=== PATIENT | female | born 1980 | race Caucasian/White ===

== ENCOUNTER → 2016-08-01 | Outpatient (CLI) | payer OTHER ==
[~2016-08-01] MED LIST: /ADVA50050; ADV250INH INH; ALBU17IN2; ASPI325T; CETI10TA3 PO; OMEP40CA2 PO; PERC5TAB8; VENTAER INH; astelin; flonase
--- NOTE | 2016-08-01 16:25 | REP ---
Maxillofacial CT study without contrast: History: Chronic sinusitis. Comparison radiographs of the sinuses are from August 17, 2010. Comparison maxillofacial CT study from December 18, 2010. Technique: Helical scanning is acquired and 3 mm axial images are reformatted. Coronal multiplanar re-formation images are generated and reviewed. CT findings: The maxillary sinuses are clear. Ethmoid, sphenoid and frontal sinuses are clear today. No mucosal changes are seen. Mastoid aeration is normal and symmetric. There is mild leftward deviation of the nasal septum with a septal beak again noted. There is a small aerated radha bullosa on the left. The ostiomeatal complexes are clear bilaterally. No intraorbital abnormality is seen. The visualized intracranial structures are unremarkable. Impression: Mild right nasal septal deviation with a beak. Paranasal sinuses are clear. Signed by Pillo Wasserman MD 08/01/2016 06:01 P
== END ==
LOC: M RAD 14:25
PROVIDERS: ATTEND Internal Medicine Pulmonary Disease
DX: J34.2 Deviated nasal septum (principal); J31.0 Chronic rhinitis; J32.0 Chronic maxillary sinusitis

== ENCOUNTER → 2016-12-29 | Outpatient (REF) | payer OTHER ==
[2016-12-29 16:21] LABS: BASO # 0.1 K/mm3 (0.0-0.2); BASO % 0.6 % (0.0-1.0); EOS # 0.5 K/mm3 (0.0-0.50); EOS % 4.3 % (0.0-3.0); LARGE UNSTAINED CELL # 0.2 K/mm3 (0.0-0.4); LARGE UNSTAINED CELL % 1.8 % (0.0-4.0); LYMPH # 3.1 K/mm3 (1.5-4.5); LYMPH % 23.9 % (24.0-44.0); MEAN CORPUSCULAR HEMOGLOBIN 28.8 pg (27.0-33.0); MEAN CORPUSCULAR HGB CONC 32.3 g/dl (32.0-36.5); MEAN CORPUSCULAR VOLUME 89.1 fl (80.0-96.0); MONO # 0.6 K/mm3 (0.0-0.8); MONO % 4.5 % (0.0-5.0); PLATELET COUNT, AUTOMATED 289 k/mm3 (150-450); WHITE BLOOD COUNT 12.2 K/mm3 (4.0-10.0)
[2016-12-29 16:58] LABS: ALBUMIN 3.8 GM/DL (3.2-5.2); ALBUMIN/GLOBULIN RATIO 1.31 (1.00-1.93); BILIRUBIN,TOTAL 0.3 MG/DL (0.2-1.0); CALCIUM LEVEL 9.5 MG/DL (8.5-10.1); CREATININE FOR GFR 1.11 MG/DL (0.55-1.02); FREE T4 1.08 NG/DL (0.76-1.46); GLOMERULAR FILTRATION RATE 59.2 (>60); TOTAL PROTEIN 6.7 GM/DL (6.4-8.2)
== END ==
LOC: M SFHCSACK 10:10
PROVIDERS: ATTEND Physician Assistant
DX: E55.9 Vitamin D deficiency, unspecified (principal); R51 Headache; Z13.29 Encounter for screening for other suspected endocrine disorder; Z13.220 Encounter for screening for lipoid disorders

== ENCOUNTER → 2017-03-30 | Outpatient (REF) | payer OTHER ==
[2017-03-30 14:58] LABS: BASO # 0.1 10^3/uL (0.0-0.2); BASO % 0.5 % (0.0-1.0); EOS # 0.6 10^3/uL (0.0-0.50); EOS % 4.8 % (0.0-3.0); IMMATURE GRANULOCYTE % 0.7 % (0-0); LYMPH # 3.7 10^3/uL (1.5-4.5); LYMPH % 30.7 % (24.0-44.0); MEAN CORPUSCULAR HEMOGLOBIN 28.3 pg (27.0-33.0); MEAN CORPUSCULAR HGB CONC 32.4 g/dl (32.0-36.5); MEAN CORPUSCULAR VOLUME 87.6 fl (80.0-96.0); MONO # 0.7 10^3/uL (0.0-0.8); NEUTROPHILS % 57.3 % (36.0-66.0); PLATELET COUNT, AUTOMATED 263 10^3/uL (150-450); RED CELL DISTRIBUTION WIDTH 14.3 % (11.5-14.5); WHITE BLOOD COUNT 12.1 10^3/uL (4.0-10.0)
[2017-03-30 15:20] LABS: ALBUMIN 3.9 GM/DL (3.2-5.2); ALBUMIN/GLOBULIN RATIO 1.44 (1.00-1.93); BILIRUBIN,TOTAL 0.3 MG/DL (0.2-1.0); CREATININE FOR GFR 1.1 MG/DL (0.55-1.02); GLOMERULAR FILTRATION RATE 59.8 (>60); TOTAL PROTEIN 6.6 GM/DL (6.4-8.2)
== END ==
LOC: M SFHCSACK 09:50
PROVIDERS: ATTEND Physician Assistant
DX: R51 Headache (principal); E78.1 Pure hyperglyceridemia; E55.9 Vitamin D deficiency, unspecified

== ENCOUNTER → 2017-06-03 | Outpatient (CLI) | payer OTHER | LOC: M RAD 08:34 | DX: N18.3 Chronic kidney disease, stage 3 (moderate) (principal) | CPT/HCPCS: 76775 ==

== ENCOUNTER → 2017-07-06 | Outpatient (REF) | payer OTHER ==
[2017-07-06 14:20] LABS: BASO # 0.1 10^3/uL (0.0-0.2); BASO % 0.6 % (0.0-1.0); EOS # 0.6 10^3/uL (0.0-0.50); EOS % 4.6 % (0.0-3.0); HEMATOCRIT 36.9 % (36.0-47.0); HEMOGLOBIN 12.1 g/dl (12.0-16.0); IMMATURE GRANULOCYTE % 0.7 % (0-3.0); LYMPH # 3.8 10^3/uL (1.5-4.5); LYMPH % 29.8 % (24.0-44.0); MEAN CORPUSCULAR HEMOGLOBIN 28.9 pg (27.0-33.0); MEAN CORPUSCULAR HGB CONC 32.8 g/dl (32.0-36.5); MEAN CORPUSCULAR VOLUME 88.1 fl (80.0-96.0); MONO # 0.8 10^3/uL (0.0-0.8); MONO % 5.9 % (0.0-5.0); NEUTROPHILS # 7.4 10^3/uL (1.8-7.7); NEUTROPHILS % 58.4 % (36.0-66.0); PLATELET COUNT, AUTOMATED 222 10^3/uL (150-450); RED BLOOD COUNT 4.19 10^6/uL (4.00-5.40); RED CELL DISTRIBUTION WIDTH 14.3 % (11.5-14.5); WHITE BLOOD COUNT 12.6 10^3/uL (4.0-10.0)
[2017-07-06 14:33] LABS: ALBUMIN 3.6 GM/DL (3.2-5.2); ALBUMIN/GLOBULIN RATIO 1.24 (1.00-1.93); ALKALINE PHOSPHATASE 97 U/L (45-117); ALT/SGPT 24 U/L (12-78); ANION GAP 8 MEQ/L (8-16); AST/SGOT 12 U/L (7-37); BILIRUBIN,TOTAL 0.4 MG/DL (0.2-1.0); BLOOD UREA NITROGEN 14 MG/DL (7-18); CALCIUM LEVEL 8.9 MG/DL (8.5-10.1); CARBON DIOXIDE LEVEL 25 MEQ/L (21-32); CHLORIDE LEVEL 109 MEQ/L (98-107); CREATININE FOR GFR 1.13 MG/DL (0.55-1.30); GLUCOSE, FASTING 85 MG/DL (70-100); POTASSIUM SERUM 3.9 MEQ/L (3.5-5.1); SODIUM LEVEL 142 MEQ/L (136-145); TOTAL PROTEIN 6.5 GM/DL (6.4-8.2)
== END ==
LOC: M SFHCSACK 10:27
DX: N39.0 Urinary tract infection, site not specified (principal)

== ENCOUNTER 2017-10-05 12:58 | Day surgery (SDC) | payer OTHER ==
[2017-10-05] MEDS: NS 1,000 ML IV (13:00)
== END 2017-10-05 15:50 | disposition home or self-care (01) ==
LOC: M OPP 12:58
DX: K29.70 Gastritis, unspecified, without bleeding (principal); R12 Heartburn; N80.9 Endometriosis, unspecified; J45.909 Unspecified asthma, uncomplicated; R51 Headache; N18.9 Chronic kidney disease, unspecified; Z79.899 Other long term (current) drug therapy
CPT/HCPCS: 43239

== ENCOUNTER 2017-11-02 19:46 | Emergency (ER) | payer OTHER ==
[2017-11-02] MEDS: diphenhydrAMINE INJ 50MG/ML VIAL (J1200) IV (21:33)
[2017-11-02] MEDS: METOCLOPRAMIDE INJ 10MG/2ML VIAL (J2765) IV (21:45)
[2017-11-02] MEDS: NS 1,000 ML IV (21:45)
[2017-11-02] MEDS: methylPREDNISolone INJ 125 MG/2 ML VIAL (J2930) IV (21:45)
== END 2017-11-02 23:49 | disposition home or self-care (01) ==
LOC: M ED 19:46
DX: G43.809 Other migraine, not intractable, without status migrainosus (principal); J30.89 Other allergic rhinitis; Z79.899 Other long term (current) drug therapy; Z79.51 Long term (current) use of inhaled steroids
CPT/HCPCS: J1200

== ENCOUNTER 2018-01-14 19:16 | Emergency (ER) | payer OTHER ==
[2018-01-14 21:33] LABS: ABG BASE EXCESS -2.3 (-2.0-2.0); ABG HCO3 18.1 MEQ/L (22.0-26.0); ABG O2 SATURATION 99.4 % (95.0-99.0); ABG PARTIAL PRESSURE CO2 20.9 mmHg (35.0-45.0); ABG PARTIAL PRESSURE O2 157.1 mmHg (75.0-100.0); ABG STANDARD HCO3 22.6 MEQ/L (22.0-26.0); ABG TOTAL CO2 18.7 MEQ/L (22.0-29.0); ABG pH (ARTERIAL) 7.555 UNITS (7.350-7.450)
== END 2018-01-14 22:12 | disposition home or self-care (01) ==
LOC: M ED 19:16
DX: R06.4 Hyperventilation (principal); J45.909 Unspecified asthma, uncomplicated; K21.9 Gastro-esophageal reflux disease without esophagitis; Z79.899 Other long term (current) drug therapy
CPT/HCPCS: 82803

== ENCOUNTER → 2018-01-14 | Outpatient (CLI) | payer OTHER | LOC: M WUC 18:17 | DX: R06.02 Shortness of breath (principal) | CPT/HCPCS: 71046 ==

== ENCOUNTER → 2018-01-20 | Outpatient (REF) | payer OTHER ==
[2018-01-20 14:10] LABS: BASO # 0.1 10^3/uL (0.0-0.2); BASO % 0.6 % (0.0-1.0); EOS # 0.4 10^3/uL (0.0-0.50); EOS % 2.7 % (0.0-3.0); HEMATOCRIT 37.7 % (36.0-47.0); IMMATURE GRANULOCYTE % 0.5 % (0-3.0); LYMPH # 4.1 10^3/uL (1.5-4.5); LYMPH % 27.6 % (24.0-44.0); MEAN CORPUSCULAR HEMOGLOBIN 28.6 pg (27.0-33.0); MEAN CORPUSCULAR HGB CONC 31.8 g/dl (32.0-36.5); MEAN CORPUSCULAR VOLUME 89.8 fl (80.0-96.0); MONO # 0.9 10^3/uL (0.0-0.8); MONO % 6.4 % (0.0-5.0); NEUTROPHILS # 9.1 10^3/uL (1.8-7.7); NEUTROPHILS % 62.2 % (36.0-66.0); PLATELET COUNT, AUTOMATED 259 10^3/uL (150-450); RED CELL DISTRIBUTION WIDTH 14.6 % (11.5-14.5); WHITE BLOOD COUNT 14.7 10^3/uL (4.0-10.0)
[2018-01-20 14:48] LABS: ALBUMIN 3.5 GM/DL (3.2-5.2); ALBUMIN/GLOBULIN RATIO 1.21 (1.00-1.93); ALKALINE PHOSPHATASE 84 U/L (45-117); ALT/SGPT 29 U/L (12-78); ANION GAP 8 MEQ/L (8-16); AST/SGOT 13 U/L (7-37); BILIRUBIN,TOTAL 0.2 MG/DL (0.2-1.0); BLOOD UREA NITROGEN 11 MG/DL (7-18); CALCIUM LEVEL 8.3 MG/DL (8.5-10.1); CARBON DIOXIDE LEVEL 23 MEQ/L (21-32); CHLORIDE LEVEL 112 MEQ/L (98-107); CHOLESTEROL LEVEL 136 MG/DL (<200); CHOLESTEROL RISK RATIO 4.689 (<5); CREATININE FOR GFR 1.24 MG/DL (0.55-1.30); FREE T4 1.13 NG/DL (0.76-1.46); GLOMERULAR FILTRATION RATE 51.8 (>60); GLUCOSE, FASTING 86 MG/DL (70-100); HDL CHOLESTEROL 29 MG/DL (>40); LDL CHOLESTEROL 49 MG/DL (<100); NON-HDL-C 107 MG/DL; SODIUM LEVEL 143 MEQ/L (136-145); THYROID STIMULATING HORMONE 0.748 uIU/ML (0.358-3.740); TOTAL PROTEIN 6.4 GM/DL (6.4-8.2); TRIGLYCERIDES LEVEL 292 MG/DL (<150)
== END ==
LOC: M SFHCSACK 09:13
DX: J45.909 Unspecified asthma, uncomplicated (principal); E78.1 Pure hyperglyceridemia; Z13.29 Encounter for screening for other suspected endocrine disorder; E55.9 Vitamin D deficiency, unspecified

== ENCOUNTER → 2018-07-30 | Outpatient (REF) | payer OTHER ==
[~2018-07-30] MED LIST changes: -/ADVA50050; +ADVA1AER2; +ALBU83IN INH; +AZEL0.1S; +BENA25CA4 PO; +BREO1INH3 INH; +FLON1SPR; +LORA-243 PO; +MONT10TA2 PO; +OMEP20CA3; +POTA1TAB23; +RIZA5TAB3
[2018-07-30 14:36] LABS: BASO # 0.1 10^3/uL (0.0-0.2); BASO % 0.4 % (0.0-1.0); EOS # 0.5 10^3/uL (0.0-0.50); EOS % 3.2 % (0.0-3.0); HEMATOCRIT 37.2 % (36.0-47.0); HEMOGLOBIN 11.8 g/dl (12.0-15.5); LYMPH # 3.3 10^3/uL (1.5-4.5); LYMPH % 22.4 % (24.0-44.0); MEAN CORPUSCULAR HEMOGLOBIN 28.4 pg (27.0-33.0); MEAN CORPUSCULAR HGB CONC 31.7 g/dl (32.0-36.5); MEAN CORPUSCULAR VOLUME 89.4 fl (80.0-96.0); MONO # 0.9 10^3/uL (0.0-0.8); MONO % 6.2 % (0.0-5.0); NEUTROPHILS # 9.9 10^3/uL (1.8-7.7); NEUTROPHILS % 67.5 % (36.0-66.0); PLATELET COUNT, AUTOMATED 268 10^3/uL (150-450); RED BLOOD COUNT 4.16 10^6/uL (4.00-5.40); WHITE BLOOD COUNT 14.7 10^3/uL (4.0-10.0)
[2018-07-30 14:50] LABS: ALBUMIN 3.6 GM/DL (3.2-5.2); BILIRUBIN,TOTAL 0.3 MG/DL (0.2-1.0); CALCIUM LEVEL 9.1 MG/DL (8.5-10.1); CHOLESTEROL RISK RATIO 3.378 (<5); CREATININE FOR GFR 1.16 MG/DL (0.55-1.30); POTASSIUM SERUM 4.4 MEQ/L (3.5-5.1); TOTAL PROTEIN 6.7 GM/DL (6.4-8.2)
[2018-07-30 14:51] LABS: TOTAL 25(OH) VITAMIN D 18.3 NG/ML (30.0-100.0)
== END ==
LOC: M SFHCSACK 08:42
PROVIDERS: ATTEND Physician Assistant
DX: D72.829 Elevated white blood cell count, unspecified (principal); E78.1 Pure hyperglyceridemia; E55.9 Vitamin D deficiency, unspecified

== ENCOUNTER → 2019-02-14 | Outpatient (REF) | payer OTHER ==
[~2019-02-14] MED LIST changes: +ALBU8TAB PO; +MULTCAP PO; -OMEP20CA3; +OMEP20CA4; -RIZA5TAB3; +RIZA5TAB52; +TIOT18INH INH; +VITA500045 PO
[2019-02-14 14:58] LABS: BASO # 0.1 10^3/uL (0.0-0.2); BASO % 0.6 % (0.0-1.0); EOS # 0.6 10^3/uL (0.0-0.5); EOS % 4.8 % (0.0-3.0); HEMOGLOBIN 12.2 g/dl (12.0-15.5); LYMPH # 3.9 10^3/uL (1.5-5.0); LYMPH % 30.2 % (24.0-44.0); MEAN CORPUSCULAR HEMOGLOBIN 29.1 pg (27.0-33.0); MEAN CORPUSCULAR HGB CONC 32.1 g/dl (32.0-36.5); MEAN CORPUSCULAR VOLUME 90.7 fl (80.0-96.0); MONO # 0.7 10^3/uL (0.0-0.8); MONO % 5.2 % (0.0-5.0); NEUTROPHILS # 7.6 10^3/uL (1.5-8.5); NEUTROPHILS % 58.7 % (36.0-66.0); PLATELET COUNT, AUTOMATED 279 10^3/uL (150-450); RED BLOOD COUNT 4.19 10^6/uL (4.00-5.40)
[2019-02-14 15:11] LABS: ALBUMIN 3.7 GM/DL (3.2-5.2); BILIRUBIN,TOTAL 0.2 MG/DL (0.2-1.0); CALCIUM LEVEL 9.3 MG/DL (8.5-10.1); CHOLESTEROL RISK RATIO 3.555 (<5); CREATININE FOR GFR 1.16 MG/DL (0.55-1.30); FREE T4 1.12 NG/DL (0.76-1.46); GLOMERULAR FILTRATION RATE 55.7 (>60); POTASSIUM SERUM 3.8 MEQ/L (3.5-5.1); THYROID STIMULATING HORMONE 0.53 uIU/ML (0.358-3.740); TOTAL PROTEIN 6.7 GM/DL (6.4-8.2)
[2019-02-14 16:03] LABS: TOTAL 25(OH) VITAMIN D 39.4 NG/ML (30.0-100.0)
== END ==
LOC: M SFHCSACK 08:46
PROVIDERS: ATTEND Physician Assistant
DX: D72.829 Elevated white blood cell count, unspecified (principal); N18.3 Chronic kidney disease, stage 3 (moderate); Z13.29 Encounter for screening for other suspected endocrine disorder; E78.1 Pure hyperglyceridemia; E55.9 Vitamin D deficiency, unspecified

== ENCOUNTER → 2019-12-23 | Outpatient (REF) | payer OTHER ==
[~2019-12-23] MED LIST changes: -MONT10TA2 PO; +MONT10TA4 PO; +OMEP1CAP73; -OMEP20CA4
== END ==
LOC: M SFHCPLAZ 10:34
PROVIDERS: ATTEND Student in an Organized Health Care Education/Training Program
DX: Z12.4 Encounter for screening for malignant neoplasm of cervix (principal); R87.619 Unspecified abnormal cytological findings in specimens from cervix uteri

== ENCOUNTER → 2020-11-29 | Outpatient (CLI) | payer OTHER ==
[~2020-11-29] MED LIST changes: +MONT10TA10 PO; -MONT10TA4 PO
[2020-11-29 17:39] LABS: THYROID STIMULATING HORMONE 0.316 uIU/ML (0.358-3.740)
[2020-11-29 17:40] LABS: PROLACTIN 8.9 NG/ML
== END ==
LOC: M PLALAB 14:52
PROVIDERS: ATTEND Nurse Practitioner Women's Health
DX: N64.52 Nipple discharge (principal)

== ENCOUNTER → 2020-12-31 | Outpatient (CLI) | payer OTHER ==
--- NOTE | 2021-01-01 11:04 | REP ---
INDICATION: RT BREAST MASS,FAM HX OF BREAST CA IN MOTHER, NIPPLE DISCHAR. COMPARISON: None TECHNIQUE: Bilateral diagnostic mammography was carried out in the CC and MLO projections using both 2D and 3D modalities. There are no priors for comparison. In addition to the standard mammography diagnostic digital magnified spot compression views of each breast were obtained along with ultrasonography using anatomical intelligence and shear wave elastography. Patient presents with a right breast mass. FINDINGS: Dense heterogenous nodular fibroglandular elements are seen bilaterally to such a degree that the sensitivity of the mammogram in detecting cancers decreased. In the right breast there is a large spiculated mass near the 12 o'clock position. This is seen with concomitant calcifications which vary in size, shape, and radiographic density. Diagnostic digital magnified spot compression views and diagnostic DBT spot compression views of this region shows a calcifications which indeed vary in size, shape and radiographic density. Large mass with spiculations persist. In the left breast near the 12 o'clock position there is a spiculated mass density. Diagnostic digital magnified spot compression views and DBT images were obtained which show persistence of the spiculated density. Diagnostic right breast ultrasound over the large mass region of interest shows a 4.3 x 2.8 x 3.9 cm sized hypoechoic irregular mass which is taller than wide and exhibits acoustic shadowing. Shear wave elastography was performed on this showing very high kPa values. Diagnostic left breast ultrasound at 12 o'clock shows 2 hypoechoic areas 1 measuring 1.6 x 0.8 x 1.4 cm and the other measuring 7.8 x 6.4 x 8.8 mm. Shear wave elastography was performed on these showing low and mid range kPa values. The Volpara volumetric breast density pattern is D. IMPRESSION: BIRADS/ACR category 4 bilateral mammogram. Suspicious findings in each breast as described above and for which bilateral biopsy is recommended. I would also recommend at this time bilateral breast MRI due to the bilateral nature of the findings today, the marked dense heterogenous breast parenchyma, and the concern for multifocal multi centric bilateral breast disease. This patient's Tyrer-Cuzick lifetime breast cancer risk assessment score is %. This mammogram was interpreted with the aid of an FDA-approved computer-aided detection system. The patient states she had a clinical breast exam in . The patient letter being requested is M1. RECOMMENDATION: Repeat screening mammography recommended 1 year (for women over 40). <Electronically signed by Vladimir Santana > 01/01/21 1100
== END ==
LOC: M WHC 14:49
PROVIDERS: ATTEND Nurse Practitioner Women's Health
DX: N63.10 Unspecified lump in the right breast, unspecified quadrant (principal); N63.20 Unspecified lump in the left breast, unspecified quadrant; N64.59 Other signs and symptoms in breast
CPT/HCPCS: 76642; 77066; G0279

== ENCOUNTER → 2021-01-03 | Outpatient (CLI) | payer OTHER ==
--- NOTE | 2021-01-03 11:35 | REP ---
INDICATION: The patient has known bilateral breast abnormalities as indicated on the diagnostic mammogram and diagnostic ultrasound examination obtained 12/31/2020. TECHNIQUE: Bilateral breast ultrasound using anatomical intelligence and shear wave elastography. FINDINGS: Right breast: Multiple complex heterogenous masses are identified throughout the right breast at the 12 30, 5 o'clock, and 9 o'clock, and 10 o'clock positions all of the solid masses are irregular, exhibit acoustic shadowing, and have abnormally high kPa values with shear wave elastography. At the 12:30 position the abnormality measures 2.1 x 1.4 x 2.4 cm, at the 5 o'clock position the abnormality measures 1.9 x 1 x 2.4 cm, at the 9 o'clock position the abnormality measures 2.4 x 1.1 x 1.7 cm, and at the 10 o'clock position the abnormality measures 2.6 x 1.4 x 2.1 cm. Left breast: Multiple complex heterogenous masses are identified throughout the left breast 2 at the 10 o'clock position, 1 to 1 o'clock position, and 1 at the 3 o'clock position. All of these are irregular, exhibit acoustic shadowing, and have abnormally high kPa values on shear wave elastography. Of the 2 masses at 10 o'clock 1 measures 1.8 x 1.8 x 1.5 cm and the other measures 3.5 x 1.6 x 2 cm, at the 1 o'clock position the mass measures 1.6 x 0.7 x 1.3 cm a, and at the 3 o'clock position the mass measures 1.9 x 1.4 x 1.5 cm. IMPRESSION: There are multiple bilateral abnormal breast masses all suspicious for malignancy. ACR category 4 ultrasound. Biopsy and bilateral breast MRI is recommended to further assess the suspected multi centric multifocal bilateral breast disease. <Electronically signed by Vladimir Santana > 01/03/21 1610
== END ==
LOC: M WHC 09:31
PROVIDERS: ATTEND Surgery
DX: N63.10 Unspecified lump in the right breast, unspecified quadrant (principal); N63.20 Unspecified lump in the left breast, unspecified quadrant

== ENCOUNTER → 2021-01-08 | Outpatient (CLI) | payer OTHER ==
[~2021-01-08] MED LIST changes: +LEVOTAB10 PO
[2021-01-08 09:55] VITALS: BP 130/88
--- NOTE | 2021-01-14 21:53 | ROOPDOC ---
[facility] Report Of Operation Report of Operation DATE OF PROCEDURE: 01/08/21 DIAGNOSIS: bilateral breast and right axillary suspicious lesions PROCEDURE: ultrasound guided biopsy of the suspicious right axillary lesion with clip placement, two suspicious right breast masses with clips placement, and two suspicious left breast masses with clips placement SURGEON: Sylvia Jorgensen BLOOD LOSS: minimal COMPLICATIONS: none Lidocaine 1% LOT [id number] Expiration 06/2024 Sodium Bicarbonate 8.4% LOT [id number] Expiration 05/2021 Right 1:00 biopsy Hydromark clip LOT [id number] Expiration 10/2023 SHAPE: 4 Bx device: BARD [id number] x10 cm LOT [id number] Expiration 09/2023 Right 10:00 biopsy Hydromark clip LOT [id number] Expiration 10/2023 SHAPE: 3 Bx device: BARD Kqnmfki45A x10 cm LOT [id number] Expiration 09/2023 Right axillary biopsy Hydromark clip LOT [id number] Expiration 10/2023 SHAPE 4 Bx device: TEMNO 18G x 20 cm LOT [id number] Expiration 05/2024 Left 1:00 biopsy Hydromark clip LOT [id number] Expiration 10/2023 SHAPE: 4 Bx device: BARD Faxfcjg06G x10 cm LOT [id number] Expiration 09/2023 Left 10:00 biopsy Hydromark clip LOT [id number] Expiration 10/2023 SHAPE: 3 Bx device: BARD [id number] x10 cm LOT [id number] Expiration 09/2023 Informed consent was obtained. The most common risk and possible complications including bleeding, hematoma, bruising, infection, injury to surrounding structures were explained to the patient and the patient expressed understanding. Patient was placed on the bed in the supine position. Appropriate time out was done stating patients name, date of , and the procedure to be performed. Procedure was started with right breast 1:00 lesion. The right breast was prepped and draped in the usual fashion. The ultrasound was used to confirm the location of the lesion in the right breast at 1:00. Plain Lidocaine 1% and 8.4% sodium bicarbonate 10:1 mix was used to anesthetize the skin, the biopsy site and tissues along the anticipated biopsy tract. Small skin incision was made with blade number 11. BARD Marquee 14G cannula with introducer ([id number]) was inserted through the incision and advanced under the ultrasound guidance to position immediately adjacent to the lesion. Next, the introducer was removed and BARD Marquee 14G biopsy device was places in the cannula. Pre-biopsy imaging, and post-biopsy imaging were captured. Five good core biopsies were taken at various levels of the lesion. Specimen was placed in formaldehyde, labeled with appropriate biopsy site and patients name, and sent to pathology for evaluation. Next, the biopsy device was withdrawn and a clip introducer was inserted into the biopsy site via the cannula. SHAPE 4 Hydromark clip was deployed under sonographic guidance. Post-clip placement image was captured. Manual pressure over the biopsy cavity and tract was held after the clip introducer was withdrawn. No bleeding was noted upon removal of the pressure. At this time, our attention was turned toward the right breast 10:00 lesion. Right breast was already previously prepped and draped in the usual fashion. The ultrasound was used to confirm the location of the lesion in the right breast at10:00. Plain Lidocaine 1% and 8.4% sodium bicarbonate 10:1 mix was used to anesthetize the skin, the biopsy site and tissues along the anticipated biopsy tract. Small skin incision was made with blade number 11. BARD Marquee 14G cannula with introducer ([id number]) was inserted through the incision and advanced under the ultrasound guidance to position immediately adjacent to the lesion. Next, the introducer was removed and BARD Marquee 14G biopsy device was places in the cannula. Pre-biopsy imaging, and post-biopsy imaging were captured. Five good core biopsies were taken at various levels of the lesion. Specimen was placed in formaldehyde, labeled with appropriate biopsy site and patients name, and sent to pathology for evaluation. Next, the biopsy device was withdrawn and a clip introducer was inserted into the biopsy site via the cannula. SHAPE 3 Hydromark clip was deployed under sonographic guidance. Post-clip placement image was captured. Manual pressure over the biopsy cavity and tract was held after the clip introducer was withdrawn. No bleeding was noted upon removal of the pressure. Next, our attention was turned toward right axilla. Appropriate time out was done stating patients name, date of , and the procedure to be repeated as new area of the body was about to be biopsied. The right axilla was prepped and draped in the usual fashion. The ultrasound was used to confirm the location of enlarged lymph node with cortex measuring over 1 cm. Plain Lidocaine 1% and 8.4% sodium bicarbonate 10:1 mix was used to anesthetize the skin, the biopsy site and tissues along the anticipated biopsy tract. Small skin incision was made with blade number 11. Temno 18G cannula with introducer was inserted through the incision and advanced under the ultrasound guidance to position immediately adjacent to the enlarged lymph node with over 1 cm cortex. Next, the introducer was removed and Temno 18G biopsy device was places in the cannula. Pre-biopsy imaging, and post-biopsy imaging were captured. Five good core biopsies were taken at various levels of the lesion. Specimen was placed in formaldehyde, labeled with appropriate biopsy site and patients name, and sent to pathology for evaluation. Next, the biopsy device and cannula were withdrawn and a clip introducer was inserted into the position immediately adjacent to the biopsied lymph node. The SHAPE 4 Hydromark clip was deployed under sonographic guidance. Post-clip placement image was captured. Manual pressure over the biopsy cavity and tract was held after the clip introducer was withdrawn. No bleeding was noted upon removal of the pressure. At this point patient was repositioned and the left breast was exposed. Appropriate time out was done stating patients name, date of , and the procedure to be performed. The left breast was prepped and draped in the usual fashion. The procedure was started with focusing on left breast 1:00 lesion. The ultrasound was used to confirm the location of the lesion in the left breast at 1:00. Plain Lidocaine 1% and 8.4% sodium bicarbonate 10:1 mix was used to anesthetize the skin, the biopsy site and tissues along the anticipated biopsy tract. Small skin incision was made with blade number 11. BARD Marquee 14G cannula with introducer ([id number]) was inserted through the incision and advanced under the ultrasound guidance to position immediately adjacent to the lesion. Next, the introducer was removed and BARD Marquee 14G biopsy device was places in the cannula. Pre-biopsy imaging, and post-biopsy imaging were captured. Five good core biopsies were taken at various levels of the lesion. Specimen was placed in formaldehyde, labeled with appropriate biopsy site and patients name, and sent to pathology for evaluation. Next, the biopsy device was withdrawn and a clip introducer was inserted into the biopsy site via the cannula. SHAPE 4 Hydromark clip was deployed under sonographic guidance. Post-clip placement image was captured. Manual pressure over the biopsy cavity and tract was held after the clip introducer was withdrawn. No bleeding was noted upon removal of the pressure. Next, our attention was turned toward left breast 10:00 lesion. The left breast was previously prepped and draped in the usual fashion. The ultrasound was used to confirm the location of the lesion in the left breast at 10:00. Plain Lidocaine 1% and 8.4% sodium bicarbonate 10:1 mix was used to anesthetize the skin, the biopsy site and tissues along the anticipated biopsy tract. Small skin incision was made with blade number 11. BARD Marquee 14G cannula with introducer ([id number]) was inserted through the incision and advanced under the ultrasound guidance to position immediately adjacent to the lesion. Next, the introducer was removed and BARD Marquee 14G biopsy device was places in the cannula. Pre-biopsy imaging, and post-biopsy imaging were captured. Five good core biopsies were taken at various levels of the lesion. Specimen was placed in formaldehyde, labeled with appropriate biopsy site and patients name, and sent to pathology for evaluation. Next, the biopsy device was withdrawn and a clip introducer was inserted into the biopsy site via the cannula. SHAPE 3 Hydromark clip was deployed under sonographic guidance. Post-clip placement image was captured. Manual pressure over the biopsy cavity and tract was held after the clip introducer was withdrawn. No bleeding was noted upon removal of the pressure. Post-biopsy mammogram of bilateral breast was done. Two right breast clips and two left breast clips were seen on imaging in expected positions. The right axillary lymph node clip is not seen on mammogram despite numerous repositioning or the patient. This clip is however seen on sonography in the lymph node. Patient tolerated procedure well. Postprocedural dressing was placed. Discharge instructions were discussed with the patient and the patient expressed understanding. SYLVIA JORGENSEN DO Jan 14, 2021 21:53
== END ==
LOC: M WHCPRO 06:30
PROVIDERS: ATTEND Surgery
DX: C50.211 Malignant neoplasm of upper-inner quadrant of right female breast (principal); C77.3 Secondary and unspecified malignant neoplasm of axilla and upper limb lymph nodes; N63.10 Unspecified lump in the right breast, unspecified quadrant; N63.20 Unspecified lump in the left breast, unspecified quadrant

== ENCOUNTER → 2021-01-10 | Outpatient (CLI) | payer OTHER ==
[2021-01-10 15:58] LABS: ALBUMIN 3.6 GM/DL (3.2-5.2); CALCIUM LEVEL 9.3 MG/DL (8.5-10.1); CREATININE FOR GFR 1.22 MG/DL (0.55-1.30); PHOSPHORUS LEVEL 2.9 MG/DL (2.5-4.9)
== END ==
LOC: M LAB 14:26
PROVIDERS: ATTEND Internal Medicine Nephrology
DX: N18.31 Chronic kidney disease, stage 3a (principal)

== ENCOUNTER → 2021-01-17 | Outpatient (CLI) | payer OTHER ==
[2021-01-17 17:45] LABS: CALCIUM LEVEL 9.5 MG/DL (8.5-10.1); CREATININE FOR GFR 1.13 MG/DL (0.55-1.30); GLOMERULAR FILTRATION RATE 56.8 (>58); POTASSIUM SERUM 4.3 MEQ/L (3.5-5.1)
== END ==
LOC: M PLALAB 15:36
PROVIDERS: ATTEND Surgery
DX: C50.911 Malignant neoplasm of unspecified site of right female breast (principal); N18.30 Chronic kidney disease, stage 3 unspecified

== ENCOUNTER → 2021-01-18 | Outpatient (CLI) | payer OTHER ==
[~2021-01-18] MED LIST changes: +PROHANCE 279.3MG/ML 15ML VIAL As Ordered ONE
--- NOTE | 2021-01-19 09:09 | REP ---
INDICATION: INVASIVE DUCTAL CA OF RT BREAST. Multiple suspicious lesions throughout both breasts seen on ultrasound. Right breast biopsy 1 o'clock position invasive ductal carcinoma. Right axillary lymph node biopsy metastatic carcinoma. Left breast biopsy 1 o'clock position intraductal papilloma. COMPARISON: Comparison mammography December 31, 2020 and January 08, 2021. Comparison breast ultrasound from December 31, January 03, and January 08, 2021. TECHNIQUE: Three Shannan MRI imaging was performed with a dedicated breast coil. Axial, coronal, and sagittal T1 and T2 weighted scans were obtained with and without fat saturation in the usual fashion. The study includes dynamically acquired post gadolinium-enhanced imaging with image subtraction. Maximum intensity projection and multi planar reformation imaging is included as well. This study is interpreted with the aid of [employer], an FDA approved computer aided detection (CAD) software program, on a dedicated breast MRI workstation. The gadolinium enhancement dose is 11 mL of intravenous ProHance. FINDINGS: There is a marked amount of fibroglandular tissue bilaterally corresponding with the mammographic pattern. There are innumerable foci of nodular enhancement distributed throughout both breasts. Many of these have prompt enhancement and washout kinetics on dynamically acquired post contrast images. RIGHT BREAST: There is a needle biopsy marker clip along the anterior margin of a large spiculated mass in the upper-outer quadrant of the right breast. This measures 6.7 cm in greatest diameter by 5.4 by 4.8 cm in greatest diameter. However, it appears to be laterally confluent with spiculated enhancing tissue more centrally in the right breast which measures up to 4.2 cm in diameter. Superiorly and medially in the right breast, there is a spiculated somewhat nodular area of enhancement in a 3.4 cm area superiorly at 11 o'clock position. There are multiple well-circumscribed enhancing nodules distributed throughout the right breast. There is a needle biopsy marker clip within a abnormal 3.2 cm lymph node in the right axilla. Just above this proven metastatic lymph node, there are 2 spherical lymph nodes measuring 1.41.3 cm in diameter which must also be considered suspicious. No chest wall disease is seen. No internal mammary adenopathy is appreciated. LEFT BREAST: In the left breast, there is a somewhat spiculated enhancing mass measuring 2.8 cm in greatest diameter in the middle 3rd superiorly at approximately 12 o'clock position. There is also a nodular but non spiculated mass in the superomedial quadrant of the left breast 2.1 cm in diameter demonstrating prompt enhancement and washout kinetics. There is a 1.9 cm cyst in the upper outer quadrant. Innumerable foci of well-defined nodular enhancement are seen distributed throughout the left breast as well. There is a T2 hyperintense nonenhancing heterogeneous mass in the medial aspect of the left breast measuring 1.7 cm in diameter. There is no evidence of suspicious left axillary lymphadenopathy. T1 and T2 weighted scans demonstrate 4 separately identifiable rounded focal liver lesions ranging in size up to 1.7 cm in the right and left lobe of the visualized liver parenchyma. Liver is not completely within the imaging field of view but liver metastatic disease must be suspected. IMPRESSION: BI-RADS category 6 known right breast malignancy. Bilateral breast MRI findings. There are multiple, in fact numerous, foci of suspicious morphologic change with enhancement and washout kinetics in both breasts. There is evidence of right breast adenopathy. There are multiple liver lesions suspicious for hepatic metastatic disease. Hepatic sonography is recommended. Depending on the sonographic findings, consideration could be given to ultrasound-guided needle biopsy of the liver. <Electronically signed by Cj Wasserman > 01/19/21 0905
== END ==
LOC: M RAD 15:36
PROVIDERS: ATTEND Surgery
DX: C50.911 Malignant neoplasm of unspecified site of right female breast (principal); K76.89 Other specified diseases of liver; N63.21 Unspecified lump in the left breast, upper outer quadrant; N60.02 Solitary cyst of left breast; C77.3 Secondary and unspecified malignant neoplasm of axilla and upper limb lymph nodes
CPT/HCPCS: 77049; A9576

== ENCOUNTER → 2021-01-28 | Outpatient (CLI) | payer OTHER ==
[~2021-01-28] MED LIST changes: +ATIV1TAB10 PO; +NOXI1TAB PO; -PROHANCE 279.3MG/ML 15ML VIAL As Ordered ONE
--- NOTE | 2021-01-28 10:27 | REP ---
INDICATION: ABNORMAL MRI SUSPICIOUS LESIONS ON LIVER COMPARISON: None. TECHNIQUE: Real time rolon scale ultrasound examination using curved array transducer. FINDINGS: Liver demonstrates 2 hypoechoic solid mass lesions in the right lobe measuring 2.8 cm and 1.8 cm maximal diameter each which cannot be further characterized by ultrasound. Pancreas is incompletely evaluated due to interposed bowel gas. The gallbladder is normal and without gallstones, wall thickening, or pericholecystic fluid. No biliary ductal dilatation is appreciated and the common bile duct measures 3.4 mm diameter. Right kidney is normal in reniform shape without hydronephrosis and measures 12.0 x 4.3 x 4.6 cm. No ascites in the visualized right upper quadrant. IMPRESSION: Two hypoechoic solid lesions in the right hepatic lobe cannot be further characterized by ultrasound and are suspicious given the patient's history of breast cancer. Pre and postcontrast CT of the abdomen is recommended for further investigation. <Electronically signed by Morales Jaime > 01/28/21 1026
== END ==
LOC: M WHC 09:26
PROVIDERS: ATTEND Surgery
DX: R92.8 Other abnormal and inconclusive findings on diagnostic imaging of breast (principal); K76.89 Other specified diseases of liver

== ENCOUNTER → 2021-01-30 | Outpatient (REF) | payer OTHER ==
[2021-01-30 15:43] LABS: PHOSPHORUS LEVEL 2.5 MG/DL (2.5-4.9)
[2021-01-30 15:55] LABS: PTH INTACT 47.1 PG/ML (18.5-88.0); TOTAL 25(OH) VITAMIN D 32.3 NG/ML (30.0-100.0)
== END ==
LOC: M LAB REF 15:24
PROVIDERS: ATTEND Nurse Practitioner Family
DX: N25.81 Secondary hyperparathyroidism of renal origin (principal); N18.31 Chronic kidney disease, stage 3a; E55.9 Vitamin D deficiency, unspecified

== ENCOUNTER → 2021-02-04 | Outpatient (CLI) | payer OTHER ==
[~2021-02-04] MED LIST changes: -OMEP1CAP73; +OMEP1CAP73 PO; -POTA1TAB23; +POTA1TAB23 PO; -RIZA5TAB52; +RIZA5TAB52 PO
--- NOTE | 2021-02-05 17:44 | ECHO ---
ECHOCARDIOGRAM DATE OF PROCEDURE: 02/04/2021 Age: 40 years Gender: Female Height: 69 inches Weight: 240 pounds Body Surface Area: 2.23 m2. Outpatient REFERRING PHYSICIAN: TC VELEZ MD INDICATION: Potentially cardiotoxic chemotherapy. MEASUREMENTS: 2D Measurements: RV 3.2 cm LV 4.1 cm Septum 1.1 cm Posterior wall 1.0 cm Aortic Root 3.1 cm LA 3.8 cm LVEF 70% Doppler Measurements: AV 1.39 m/s LVOT 0.91 m/s LVOT diameter 2.0 cm MV-E 78, A 78, E/A ratio 1.0 Early mitral deceleration time 180 ms E prime medial 7.7, A prime medial 7, E prime lateral 13.4 PV - 0.8 m/s Pulmonary artery acceleration time 120 ms PASP 28 mmHg IVC 1.9 cm COMMENTS: Normal sinus rhythm without intraventricular conduction disturbance. M-Mode and Two Dimensional Echocardiography was performed with pulse, continuous wave, color flow, and tissue Doppler studies. Global longitudinal strain imaging was also performed, but unnecessary given the person's intact LV systolic and diastolic function. Normal left ventricular size, wall thickness, and wall motion. Normal left atrial size and Doppler assessment of LV diastolic dysfunction and estimated mean left atrial pressure. Normal right heart chamber sizes and motion and estimated pulmonary arterial pressure. Normal inferior vena cava (IVC) size and collapse against an elevated central venous pressure. Normal aortic diameters. Normal-appearing and functioning valvular structures. Very mild mitral and tricuspid insufficiency (physiologic). No apparent intracardiac mass or pericardial effusion. MTDD
== END ==
LOC: M CARPUL 10:03
PROVIDERS: ATTEND Specialist
DX: C50.812 Malignant neoplasm of overlapping sites of left female breast (principal)

== ENCOUNTER → 2021-02-11 | Outpatient (CLI) | payer OTHER ==
--- NOTE | 2021-02-11 18:09 | REP ---
INDICATION: RESTAGING INVASIVE DUCTAL CARCINOMA OF RT BRST. COMPARISON: None. TECHNIQUE: 9.34 mCi of FDG 18 was administered intravenously via the left AC. Following an adequate uptake period, PET-CT was performed from the skull base to the pubic symphysis. FINDINGS: Head and neck: There is a normal distribution of FDG activity in the visualized brain parenchyma. There are coarse calcifications in the right thyroid lobe. There is a 17 mm in diameter hypodense nodule in the right thyroid lobe. Chest: There is an enlarged hypermetabolic right axillary lymph node measuring 2.8 x 2.0 cm, max SUV 6.3. There is a 11 x 9 mm hypermetabolic nodule in the center of the breast, posterior 3rd above the nipple, at 12 o'clock, demonstrating hypermetabolic activity, max SUV 6.3. There is diffuse increased activity in the right breast, consistent with radiation therapy. There is a 10 x 9 mm focus of hypermetabolic activity in the left breast directly deep to and above the nipple at 12 o'clock in the middle 3rd of the breast, max SUV 4.7. There is no abnormal FDG activity within the pulmonary parenchyma. There are small bilateral pleural effusions. Heart size is normal. There is no pericardial effusion. There is a chemotherapy port in the left upper chest wall with the tip in the superior vena cava via the left internal jugular vein. Abdomen and pelvis: There are 3 foci of abnormal FDG activity in the liver as follows: Left hepatic lobe 9 mm in diameter, max SUV 5.6; anterior segment right hepatic lobe 1.3 cm diameter, max SUV 7.6; posterior segment, right hepatic lobe measuring 1.2 cm in diameter, max SUV 7.8. There is a small hiatal hernia. Musculoskeletal: There are no lytic sclerotic or areas of abnormal FDG activity within the visualized skeletal structures. IMPRESSION: 1. There are foci of increased FDG activity in both breasts to suggest neoplastic disease. 2. There is an enlarged hypermetabolic right axillary lymph node consistent with metastatic disease. 3. There is diffusely increased FDG activity in the right breast may reflect radiation therapy. 4. Foci of increased FDG activity in the liver consistent with metastatic disease. 5. Other findings as noted. <Electronically signed by Darrius Vasquez > 02/11/21 [id number]
== END ==
LOC: M PLARAD 09:05
PROVIDERS: ATTEND Surgery
DX: C50.911 Malignant neoplasm of unspecified site of right female breast (principal); J90 Pleural effusion, not elsewhere classified; K76.89 Other specified diseases of liver; R59.0 Localized enlarged lymph nodes
CPT/HCPCS: 78815; A9552

== ENCOUNTER → 2021-02-20 | Outpatient (CLI) | payer OTHER ==
[~2021-02-20] MED LIST changes: +LIDOCAINE 1% MDV 20ML VIAL As Ordered ONE
[2021-02-20 12:45] VITALS: BP 121/73
--- NOTE | 2021-02-20 17:26 | REP ---
INDICATION: LIVER MASS. COMPARISON: None. TECHNIQUE: The procedure was performed under the direct supervision of Dr. Angel. The patient has a history of hypermetabolic masses in the liver seen on a previous PET scan dated 02/11/2021. The risks and benefits of the procedure were explained to the patient and informed consent was obtained. A lesion in the right lobe of the liver was localized using ultrasound guidance. The skin was prepped and draped in a sterile fashion. 10 mL of 1% lidocaine was used as a local anesthetic. Using ultrasound guidance a 19/20 gauge coaxial needle biopsy system was inserted and advanced into the mass. Five core biopsy samples were obtained. Estimated blood loss: Less than 1 mL. The patient tolerated the procedure well and there were no immediate complications. After the appropriate amount to monitor convalescence the patient was discharged from the department. FINDINGS: None IMPRESSION: Ultrasound-guided liver biopsy. <Electronically signed by Gerardo Torres > 02/20/21 1717 <Electronically signed by Sridhar Angel > 02/20/21 [id number]
== END ==
LOC: M IRPRO 09:40
PROVIDERS: ATTEND Specialist
DX: C78.7 Secondary malignant neoplasm of liver and intrahepatic bile duct (principal); C50.911 Malignant neoplasm of unspecified site of right female breast

== ENCOUNTER → 2021-02-26 | Outpatient (POV) | payer OTHER ==
[~2021-02-26] VITALS: Ht 175.3 cm; Wt 110.9 kg
[~2021-02-26] MED LIST changes: -LIDOCAINE 1% MDV 20ML VIAL As Ordered ONE; +ONDA8TAB10 PO; +PROC10TA4 PO
[2021-02-26 07:40] VITALS: BP 130/88
--- NOTE | 2021-02-28 12:34 | IRPN ---
[facility] IR Progress Note IR Progress Note DATE: Feb 26, 2021 FOLLOW-UP: Status post port placement. Patient reports doing well. No fevers, chills, pain or discharge from site. ON EXAMINATION: Port site healing well. Glue and Steri-Strips are in place. No redness, swelling or fluctuance. IMPRESSION: Doing well status post port placement. Glue and Steri-Strips will fall off by themselves. No further follow-up scheduled unless initiated by patient and/or referring provider. Thank you for this referral Allergies Coded Allergies: ENVIRONMENTAL (Verified Allergy, Unknown, 09/23/17) VS,Fishbone, I+O VS, Fishbone, I+O Vital Signs Date Time Temp Pulse Resp B/P (MAP) Pulse Ox O2 Delivery O2 Flow Rate FiO2 02/26/21 07:40 97.3 102 16 130/88 (102) 97 Room Air JOHANA BARBOSA MD Feb 28, 2021 12:34
== END ==
LOC: M IRPOV 07:24
PROVIDERS: ATTEND Radiology Diagnostic Radiology
DX: Z45.2 Encounter for adjustment and management of vascular access device (principal)

== ENCOUNTER → 2021-03-21 | Outpatient (CLI) | payer OTHER ==
[~2021-03-21] MED LIST changes: +AUGM875T28 PO; +LIDO1CRE42 TOP; +POTA20TA6 PO
--- NOTE | 2021-03-23 18:28 | REP ---
INDICATION: THYRID NODULE COMPARISON: None. TECHNIQUE: Angel scale and color evaluation of the thyroid gland using the linear high frequency transducer. FINDINGS: The thyroid gland is enlarged and demonstrates heterogeneous echotexture with multiple nodules. Right thyroid lobe measures 7.0 x 2.9 x 2.2 cm and includes multiple nodules including 1.6 x 1.2 x 1.2 cm midpole nodule, 10 x 5 x 10 mm upper pole nodule with mural calcification, and 2.0 x 1.1 x 1.3 cm complex nodule lower pole with echogenic material. Isthmus measures 12 mm in width with 2.5 x 1.1 x 1.3 cm nodule. Left thyroid lobe measures 5.4 x 1.9 x 1.7 cm and includes 1.7 x 0.8 x 1.3 cm upper pole, 1.3 x 0.6 x 1.3 cm midpole, and 2.0 x 1.3 x 1.5 cm lower pole nodules. IMPRESSION: Multinodular goiter. Findings should be correlated with thyroid function tests and nuclear medicine imaging. <Electronically signed by Morales Jaime > 03/23/21 [id number]
== END ==
LOC: M WHC 10:51
PROVIDERS: ATTEND Surgery
DX: E04.2 Nontoxic multinodular goiter (principal)

== ENCOUNTER → 2021-05-07 | Outpatient (CLI) | payer OTHER ==
[~2021-05-07] MED LIST changes: +ANAS1TAB2 PO; -MONT10TA10 PO; +MONT10TA97 PO; +ONDA-84 PO; -ONDA8TAB10 PO; +POTA-151 PO; -POTA20TA6 PO; -PROC10TA4 PO; +PROC10TA5 PO
== END ==
LOC: M WHC 08:30
PROVIDERS: ATTEND Specialist
DX: Z51.81 Encounter for therapeutic drug level monitoring (principal); Z79.899 Other long term (current) drug therapy; Z85.3 Personal history of malignant neoplasm of breast; M85.851 Other specified disorders of bone density and structure, right thigh; M85.852 Other specified disorders of bone density and structure, left thigh

== ENCOUNTER → 2021-05-14 | Outpatient (CLI) | payer OTHER ==
[~2021-05-14] MED LIST changes: +LIDOCAINE 1% MDV 20ML VIAL As Ordered ONE
[2021-05-14 14:30] VITALS: BP 134/85
== END ==
LOC: M IRPRO 12:05
PROVIDERS: ATTEND Otolaryngology
DX: E04.2 Nontoxic multinodular goiter (principal)

== ENCOUNTER → 2021-05-20 | Outpatient (CLI) | payer OTHER ==
[~2021-05-20] MED LIST changes: +AUGM500T34 PO; +CALC500C16 PO; +DEXA4TA PO; +FOSA70TA PO; -LIDOCAINE 1% MDV 20ML VIAL As Ordered ONE; +PROHANCE 279.3MG/ML 15ML VIAL ONE
== END ==
LOC: M PLAIMG 10:08
PROVIDERS: ATTEND Specialist
DX: C78.7 Secondary malignant neoplasm of liver and intrahepatic bile duct (principal); R16.2 Hepatomegaly with splenomegaly, not elsewhere classified
CPT/HCPCS: 74183; A9576

== ENCOUNTER → 2021-06-10 | Outpatient (CLI) | payer OTHER ==
[~2021-06-10] MED LIST changes: +LIDOCAINE 1% MDV 20ML VIAL As Ordered ONE; -PROHANCE 279.3MG/ML 15ML VIAL ONE
[2021-06-10 10:35] VITALS: BP 127/70
== END ==
LOC: M IRPRO 08:29
PROVIDERS: ATTEND Otolaryngology
DX: E04.1 Nontoxic single thyroid nodule (principal)

== ENCOUNTER → 2021-06-17 | Outpatient (CLI) | payer OTHER ==
[~2021-06-17] MED LIST changes: -LIDOCAINE 1% MDV 20ML VIAL As Ordered ONE; +MUPI2OI
== END ==
LOC: M RAD 14:30
PROVIDERS: ATTEND Specialist
DX: R51.9 Headache, unspecified (principal)

== ENCOUNTER → 2021-06-20 | Outpatient (CLI) | payer OTHER | LOC: M CARPUL 08:03 | PROVIDERS: ATTEND Specialist | DX: C50.919 Malignant neoplasm of unspecified site of unspecified female breast (principal) ==

== ENCOUNTER → 2021-08-30 | Outpatient (CLI) | payer OTHER | LOC: M PLARAD 08:42 | PROVIDERS: ATTEND Specialist | DX: C50.919 Malignant neoplasm of unspecified site of unspecified female breast (principal); K76.89 Other specified diseases of liver; N28.1 Cyst of kidney, acquired ==

== ENCOUNTER 2021-09-29 15:29 | Inpatient (IN) | payer OTHER ==
[~2021-09-29] VITALS: Ht 175.3 cm; Wt 104.5 kg
[~2021-09-29 15:29] MED LIST changes: +ALBU2.5V10 INH; -ALBU83IN INH; +PRIS1TAB PO
[2021-09-29] MEDS ORDERED: NS 1,000 ML IV ONE ×2 (16:05→19:10)
[2021-09-29 16:44] LABS: BASO # 0.1 10^3/uL (0.0-0.2); BASO % 0.2 % (0.0-1.0); EOS # 0.1 10^3/uL (0.0-0.5); EOS % 0.4 % (0.0-3.0); HEMATOCRIT 31.6 % (36.0-47.0); HEMOGLOBIN 9.4 g/dl (12.0-15.5); LYMPH % 3.7 % (24.0-44.0); MEAN CORPUSCULAR HGB CONC 29.7 g/dl (32.0-36.5); MEAN CORPUSCULAR VOLUME 87.5 fl (80.0-96.0); MONO # 1.2 10^3/uL (0.0-0.8); MONO % 4.6 % (2.0-8.0); NEUTROPHILS # 24.4 10^3/uL (1.5-8.5); NEUTROPHILS % 90.5 % (36.0-66.0); PLATELET COUNT, AUTOMATED 375 10^3/uL (150-450); RED BLOOD COUNT 3.61 10^6/uL (4.00-5.40); WHITE BLOOD COUNT 26.9 10^3/uL (4.0-10.0)
[2021-09-29 17:04] LABS: CALCIUM LEVEL 8.6 MG/DL (8.5-10.1); CREATININE FOR GFR 1.2 MG/DL (0.55-1.30); GLOMERULAR FILTRATION RATE 52.7 (>58); POTASSIUM SERUM 3.9 MEQ/L (3.5-5.1)
[2021-09-29] MEDS ORDERED: ISOVUE-370 76% 100ML VIAL As Ordered ONE (17:09)
[2021-09-29] MEDS ORDERED: cefTRIAXone SOD 2 GM in D5W MINI-BAG PLUS 50 ML IV ONE (18:30)
[2021-09-29] MEDS ORDERED: CEPACOL LOZENGE PO PRN (19:10)
[2021-09-29] MEDS ORDERED: CHLORASEPTIC SPRAY MT PRN (19:10)
[2021-09-29 19:23] LABS: PARTIAL THROMBOPLASTIN TIME 29.7 SECONDS (25.9-37.0)
[2021-09-29 19:26] LABS: INR 1.07; PROTHROMBIN TIME 14.3 SECONDS (12.7-14.5)
[2021-09-29] MEDS ORDERED: POTA10TA67 PO (19:59)
[2021-09-29] MEDS ORDERED: ANAS1TAB2 PO (19:59)
[2021-09-29] MEDS ORDERED: OMEP10CA PO (19:59)
[2021-09-29] MEDS ORDERED: ONDANSETRON 4MG/2ML VIAL IV PRN (20:00)
[2021-09-29] MEDS ORDERED: MYLASSUD PO (20:01)
[2021-09-29] MEDS ORDERED: HOME MED LIST COMPLETE! XX SCH (20:05)
[2021-09-29] MEDS ORDERED: PROCHLORPERAZINE 5MG TAB PO PRN (20:30)
[2021-09-29] MEDS ORDERED: LORazepam 0.5 MG TAB PO PRN (20:30)
[2021-09-29] MEDS ORDERED: RIZATRIPTAN MLT 10 MG TAB PO PRN (20:30)
[2021-09-29] MEDS ORDERED: ALBUTEROL SULFATE 2.5 MG/0.5 ML INH NEB SOLN INH PRN (20:30)
[2021-09-29] MEDS: FLUTICASONE PROP 0.05% NASAL SPRAY 16 GM (FLONASE) SCH (21:00)
[2021-09-29] MEDS: EXCEDRIN MIGRAINE TABLET PO PRN (21:08)
[2021-09-29] MEDS ORDERED: RIZA10TA58 PO (21:13)
[2021-09-29] MEDS: IPRATROPIUM 0.5MG/ALBUTEROL 2.5MG INH SOL UD 3ML (DUONEB) NEB SCH (21:21)
[2021-09-29] MEDS: diphenhydrAMINE 25MG CAP PO SCH (21:24)
[2021-09-29] MEDS: MAALOX 30 ML SUSP *UDC PO SCH (21:24)
[2021-09-29] MEDS: CETIRIZINE (ZyrTEC) 10 MG TAB PO SCH (21:24)
[2021-09-29] MEDS: DOXYCYCLINE HYCLATE 100MG TABLET PO SCH (21:24)
[2021-09-29] MEDS: MONTELUKAST 10 MG TAB PO SCH (21:24)
[2021-09-29] MEDS: NS 1,000 ML IV SCH (21:49)
[2021-09-29] MEDS ORDERED: guaiFENesin DM LIQ 10ML UD PO PRN (22:20)
[2021-09-29] MEDS: ACETAMINOPHEN TAB 650MG DOSE (2X325MG) PO PRN (22:21)
[2021-09-30] MEDS: IPRATROPIUM 0.5MG/ALBUTEROL 2.5MG INH SOL UD 3ML (DUONEB) NEB SCH ×4 (01:45→20:00)
[2021-09-30] MEDS: NS 1,000 ML IV SCH ×2 (04:00→12:00)
[2021-09-30 06:55] LABS: HEMATOCRIT 24.8 % (36.0-47.0); HEMOGLOBIN 7.5 g/dl (12.0-15.5); MEAN CORPUSCULAR HEMOGLOBIN 26.2 pg (27.0-33.0); MEAN CORPUSCULAR HGB CONC 30.2 g/dl (32.0-36.5); MEAN CORPUSCULAR VOLUME 86.7 fl (80.0-96.0); PLATELET COUNT, AUTOMATED 306 10^3/uL (150-450); RED BLOOD COUNT 2.86 10^6/uL (4.00-5.40); WHITE BLOOD COUNT 18.1 10^3/uL (4.0-10.0)
[2021-09-30] MEDS: ADVAIR HFA 115/21MCG INHALER INH SCH ×2 (07:12→20:04)
[2021-09-30 07:16] LABS: BLOOD UREA NITROGEN 12 MG/DL (7-18); CALCIUM LEVEL 7.7 MG/DL (8.5-10.1); CARBON DIOXIDE LEVEL 19 MEQ/L (21-32); CHLORIDE LEVEL 119 MEQ/L (98-107); CREATININE FOR GFR 0.99 MG/DL (0.55-1.30); GLOMERULAR FILTRATION RATE > 60.0 (>58); GLUCOSE, FASTING 87 MG/DL (70-100); MAGNESIUM LEVEL 2.1 MG/DL (1.8-2.4); POTASSIUM SERUM 3.5 MEQ/L (3.5-5.1); SODIUM LEVEL 145 MEQ/L (136-145)
[2021-09-30] MEDS: FLUTICASONE PROP 0.05% NASAL SPRAY 16 GM (FLONASE) SCH ×2 (09:00→21:49)
[2021-09-30] MEDS ORDERED: cefTRIAXone SOD 1 GM in D5W MINI-BAG PLUS 50 ML IV SCH (09:00)
[2021-09-30] MEDS: CALCIUM CARBONATE 500 MG CHEW U/D PO SCH (10:00)
[2021-09-30] MEDS: DOXYCYCLINE HYCLATE 100MG TABLET PO SCH (10:00)
[2021-09-30] MEDS: POTASSIUM CHLORIDE 10MEQ SR TABLET PO SCH (10:00)
[2021-09-30] MEDS: OMEPRAZOLE 20MG CAP PO SCH (10:00)
[2021-09-30] MEDS: MAALOX 30 ML SUSP *UDC PO SCH ×3 (10:00→20:04)
[2021-09-30] MEDS ORDERED: OMEP10CA PO (11:48)
[2021-09-30 14:51] VITALS: BP 108/71
[2021-09-30] MEDS: NYSTATIN 500,000 U/5 ML SUSP UDC SS SCH (18:59)
[2021-09-30] MEDS ORDERED: MAGIC MOUTHWASH SUSPENSION BTL SS PRN (20:00)
[2021-09-30] MEDS: diphenhydrAMINE 25MG CAP PO SCH (20:06)
[2021-09-30] MEDS: CETIRIZINE (ZyrTEC) 10 MG TAB PO SCH (20:06)
[2021-09-30] MEDS: MONTELUKAST 10 MG TAB PO SCH (20:06)
[2021-09-30] MEDS: ACETAMINOPHEN TAB 650MG DOSE (2X325MG) PO PRN (20:06)
[2021-09-30 21:00] VITALS: BP 112/73
[2021-09-30 21:13] VITALS: BP 112/73
[2021-09-30 22:00] VITALS: BP 112/73
[2021-09-30 22:25] VITALS: BP 113/73
[2021-10-01] VITALS (9 sets, daily range): BP systolic 100–123; BP diastolic 63–77
[2021-10-01] MEDS: NYSTATIN 500,000 U/5 ML SUSP UDC SS SCH ×5 (00:13→23:14)
[2021-10-01] MEDS: IPRATROPIUM 0.5MG/ALBUTEROL 2.5MG INH SOL UD 3ML (DUONEB) NEB SCH ×3 (02:37→14:10)
[2021-10-01 06:16] LABS: HEMATOCRIT 25.6 % (36.0-47.0); HEMOGLOBIN 7.9 g/dl (12.0-15.5); MEAN CORPUSCULAR HEMOGLOBIN 26.7 pg (27.0-33.0); MEAN CORPUSCULAR HGB CONC 30.9 g/dl (32.0-36.5); MEAN CORPUSCULAR VOLUME 86.5 fl (80.0-96.0); PLATELET COUNT, AUTOMATED 289 10^3/uL (150-450); RED BLOOD COUNT 2.96 10^6/uL (4.00-5.40); WHITE BLOOD COUNT 13.5 10^3/uL (4.0-10.0)
[2021-10-01 06:45] LABS: BLOOD UREA NITROGEN 8 MG/DL (7-18); CALCIUM LEVEL 8.1 MG/DL (8.5-10.1); CARBON DIOXIDE LEVEL 21 MEQ/L (21-32); CHLORIDE LEVEL 119 MEQ/L (98-107); CREATININE FOR GFR 0.96 MG/DL (0.55-1.30); GLOMERULAR FILTRATION RATE > 60.0 (>58); GLUCOSE, FASTING 92 MG/DL (70-100); MAGNESIUM LEVEL 2.3 MG/DL (1.8-2.4); POTASSIUM SERUM 3.3 MEQ/L (3.5-5.1); SODIUM LEVEL 145 MEQ/L (136-145)
[2021-10-01] MEDS ORDERED: POTASSIUM CHLORIDE 10MEQ SR TABLET PO ONE (07:55)
[2021-10-01] MEDS: ADVAIR HFA 115/21MCG INHALER INH SCH ×2 (08:34→19:39)
[2021-10-01] MEDS: MAALOX 30 ML SUSP *UDC PO SCH ×3 (09:23→19:59)
[2021-10-01] MEDS: ACETAMINOPHEN TAB 650MG DOSE (2X325MG) PO PRN (09:23)
[2021-10-01] MEDS: POTASSIUM CHLORIDE 10MEQ SR TABLET PO SCH (09:24)
[2021-10-01] MEDS: CALCIUM CARBONATE 500 MG CHEW U/D PO SCH (09:24)
[2021-10-01] MEDS: OMEPRAZOLE 20MG CAP PO SCH (09:24)
[2021-10-01] MEDS: FLUTICASONE PROP 0.05% NASAL SPRAY 16 GM (FLONASE) SCH ×2 (09:24→19:59)
[2021-10-01 13:40] LABS: HEMATOCRIT 29.7 % (36.0-47.0); HEMOGLOBIN 9.3 g/dl (12.0-15.5); MEAN CORPUSCULAR HEMOGLOBIN 27.1 pg (27.0-33.0); MEAN CORPUSCULAR HGB CONC 31.3 g/dl (32.0-36.5); MEAN CORPUSCULAR VOLUME 86.6 fl (80.0-96.0); PLATELET COUNT, AUTOMATED 304 10^3/uL (150-450); RED BLOOD COUNT 3.43 10^6/uL (4.00-5.40); WHITE BLOOD COUNT 13.6 10^3/uL (4.0-10.0)
[2021-10-01] MEDS ORDERED: ISOVUE-370 76% 100ML VIAL As Ordered ONE (17:35)
[2021-10-01 18:07] LABS: FREE T4 1.29 NG/DL (0.76-1.46)
[2021-10-01 18:14] LABS: TOTAL T3 120.4 NG/DL (60.0-181.0)
[2021-10-01] MEDS: CETIRIZINE (ZyrTEC) 10 MG TAB PO SCH (19:59)
[2021-10-01] MEDS: diphenhydrAMINE 25MG CAP PO SCH (19:59)
[2021-10-01] MEDS: MONTELUKAST 10 MG TAB PO SCH (19:59)
[2021-10-02 02:00] VITALS: BP 116/73
[2021-10-02] MEDS: NYSTATIN 500,000 U/5 ML SUSP UDC SS SCH (05:34)
[2021-10-02] MEDS: ACETAMINOPHEN TAB 650MG DOSE (2X325MG) PO PRN (05:34)
[2021-10-02 05:54] LABS: HEMATOCRIT 29.9 % (36.0-47.0); HEMOGLOBIN 9.3 g/dl (12.0-15.5); MEAN CORPUSCULAR HEMOGLOBIN 26.7 pg (27.0-33.0); MEAN CORPUSCULAR HGB CONC 31.1 g/dl (32.0-36.5); MEAN CORPUSCULAR VOLUME 85.9 fl (80.0-96.0); PLATELET COUNT, AUTOMATED 332 10^3/uL (150-450); RED BLOOD COUNT 3.48 10^6/uL (4.00-5.40); WHITE BLOOD COUNT 12.2 10^3/uL (4.0-10.0)
[2021-10-02 06:00] VITALS: BP 119/76
[2021-10-02 06:17] LABS: BLOOD UREA NITROGEN 6 MG/DL (7-18); CALCIUM LEVEL 9.2 MG/DL (8.5-10.1); CARBON DIOXIDE LEVEL 20 MEQ/L (21-32); CHLORIDE LEVEL 118 MEQ/L (98-107); CREATININE FOR GFR 0.96 MG/DL (0.55-1.30); GLOMERULAR FILTRATION RATE > 60.0 (>58); GLUCOSE, FASTING 89 MG/DL (70-100); MAGNESIUM LEVEL 2.4 MG/DL (1.8-2.4); POTASSIUM SERUM 3.7 MEQ/L (3.5-5.1); SODIUM LEVEL 146 MEQ/L (136-145)
[2021-10-02] MEDS: ADVAIR HFA 115/21MCG INHALER INH SCH (07:09)
[2021-10-02] MEDS ORDERED: NYST50SS SS (08:01)
[2021-10-02] MEDS ORDERED: OMEP-173 PO (08:01)
[2021-10-02] MEDS ORDERED: ANAS1TAB2 PO (08:36)
[2021-10-02] MEDS ORDERED: ENOXAPARIN 40MG/0.4ML SYRINGE (J1650 PER 10MG) SC SCH (09:00)
[2021-10-02] MEDS: MAALOX 30 ML SUSP *UDC PO SCH (09:30)
[2021-10-02] MEDS: EXCEDRIN MIGRAINE TABLET PO PRN (09:30)
[2021-10-02] MEDS: CALCIUM CARBONATE 500 MG CHEW U/D PO SCH (09:30)
[2021-10-02] MEDS: POTASSIUM CHLORIDE 10MEQ SR TABLET PO SCH (09:30)
[2021-10-02] MEDS: OMEPRAZOLE 20MG CAP PO SCH (09:31)
[2021-10-02] MEDS: FLUTICASONE PROP 0.05% NASAL SPRAY 16 GM (FLONASE) SCH (09:31)
== END 2021-10-02 11:11 | disposition home or self-care (01) | DRG 663 ==
LOC: M ED 15:29 → M ED INP 19:07 → ENRESERV 19:23 → M MSPAV 09-30 14:45
PROVIDERS: ADMIT Internal Medicine; ATTEND Internal Medicine
PROC: 30233N1 Transfusion of Nonautologous Red Blood Cells into Peripheral Vein, Percutaneous Approach (ICD-10-PCS; principal; 2021-10-01)
DX: D64.81 Anemia due to antineoplastic chemotherapy (principal); C77.3 Secondary and unspecified malignant neoplasm of axilla and upper limb lymph nodes; C78.7 Secondary malignant neoplasm of liver and intrahepatic bile duct; C50.911 Malignant neoplasm of unspecified site of right female breast; E86.0 Dehydration; R13.10 Dysphagia, unspecified; K21.9 Gastro-esophageal reflux disease without esophagitis; G43.909 Migraine, unspecified, not intractable, without status migrainosus; J45.909 Unspecified asthma, uncomplicated; E04.1 Nontoxic single thyroid nodule; K12.39 Other oral mucositis (ulcerative); R00.0 Tachycardia, unspecified; D72.829 Elevated white blood cell count, unspecified; Z79.899 Other long term (current) drug therapy

== ENCOUNTER → 2021-10-18 | Outpatient (CLI) | payer OTHER ==
[~2021-10-18] MED LIST changes: +MYLASSUD PO; +NYST50SS SS; +OMEP-173 PO; +OMEP10CA PO; +POTA10TA67 PO; +RIZA10TA58 PO
== END ==
LOC: M CARPUL 09:41
PROVIDERS: ATTEND Specialist
DX: I42.7 Cardiomyopathy due to drug and external agent (principal); Z79.899 Other long term (current) drug therapy

== ENCOUNTER → 2021-12-11 | Outpatient (CLI) | payer OTHER ==
[~2021-12-11] MED LIST changes: +ALEN70TA87 PO; +AZIT500T5 PO; +BENZ200C70 PO; +DULO30CA9 PO; -FOSA70TA PO
== END ==
LOC: M ONCR 13:00
PROVIDERS: ATTEND Dietitian, Registered
DX: C50.411 Malignant neoplasm of upper-outer quadrant of right female breast (principal); C77.3 Secondary and unspecified malignant neoplasm of axilla and upper limb lymph nodes; C78.7 Secondary malignant neoplasm of liver and intrahepatic bile duct; R53.83 Other fatigue; R19.7 Diarrhea, unspecified; F32.A Depression, unspecified; F41.1 Generalized anxiety disorder; J45.909 Unspecified asthma, uncomplicated; K21.9 Gastro-esophageal reflux disease without esophagitis; J32.9 Chronic sinusitis, unspecified; M25.512 Pain in left shoulder; N80.8 Other endometriosis; Z51.5 Encounter for palliative care; Z80.3 Family history of malignant neoplasm of breast; Z79.899 Other long term (current) drug therapy

== ENCOUNTER → 2021-12-16 | Outpatient (CLI) | payer OTHER ==
[~2021-12-16] MED LIST changes: -ALEN70TA87 PO; -AZIT500T5 PO; -BENZ200C70 PO; +FOSA70TA PO; +PROHANCE 279.3MG/ML 15ML VIAL As Ordered ONE; +PROHANCE 279.3MG/ML 5ML VIAL As Ordered ONE
== END ==
LOC: M RAD 08:41
PROVIDERS: ATTEND Specialist
DX: C50.919 Malignant neoplasm of unspecified site of unspecified female breast (principal); R16.2 Hepatomegaly with splenomegaly, not elsewhere classified
CPT/HCPCS: 74183; A9576

== ENCOUNTER → 2021-12-27 | Outpatient (CLI) | payer OTHER ==
[~2021-12-27] MED LIST changes: +ALEN70TA87 PO; -FOSA70TA PO; -PROHANCE 279.3MG/ML 15ML VIAL As Ordered ONE; -PROHANCE 279.3MG/ML 5ML VIAL As Ordered ONE
== END ==
LOC: M WHC 08:29
PROVIDERS: ATTEND Otolaryngology
DX: E04.2 Nontoxic multinodular goiter (principal)

== ENCOUNTER → 2022-01-09 | Outpatient (CLI) | payer OTHER ==
[~2022-01-09] MED LIST changes: +AZIT500T5 PO; +BENZ200C70 PO
== END ==
LOC: M PAL 11:32
PROVIDERS: ATTEND Nurse Practitioner Family
DX: C50.911 Malignant neoplasm of unspecified site of right female breast (principal); D64.81 Anemia due to antineoplastic chemotherapy; Z51.5 Encounter for palliative care; Z92.21 Personal history of antineoplastic chemotherapy; Z79.899 Other long term (current) drug therapy; Z79.51 Long term (current) use of inhaled steroids; J30.2 Other seasonal allergic rhinitis

== ENCOUNTER → 2022-01-21 | Outpatient (CLI) | payer OTHER | LOC: M LAB 12:38 | PROVIDERS: ATTEND Nurse Practitioner | DX: I42.7 Cardiomyopathy due to drug and external agent (principal); C50.919 Malignant neoplasm of unspecified site of unspecified female breast; T45.1X5A Adverse effect of antineoplastic and immunosuppressive drugs, initial encounter ==

== ENCOUNTER → 2022-01-27 | Outpatient (CLI) | payer OTHER | LOC: M CARPUL 10:02 | PROVIDERS: ATTEND Nurse Practitioner | DX: R05.9 Cough, unspecified (principal); C50.919 Malignant neoplasm of unspecified site of unspecified female breast ==

== ENCOUNTER → 2022-03-06 | Outpatient (CLI) | payer OTHER ==
[~2022-03-06] MED LIST changes: +CIPR7.5D5 OTIC; +CIPRHCOTIC OTIC; +PROHANCE 279.3MG/ML 5ML VIAL ONE
== END ==
LOC: M PLAIMG 10:55
PROVIDERS: ATTEND Nurse Practitioner
DX: C50.919 Malignant neoplasm of unspecified site of unspecified female breast (principal); R90.82 White matter disease, unspecified; G93.89 Other specified disorders of brain
CPT/HCPCS: 70553; A9576

== ENCOUNTER → 2022-03-27 | Outpatient (CLI) | payer OTHER ==
[~2022-03-27] MED LIST changes: +AMOX875T2; -PROHANCE 279.3MG/ML 5ML VIAL ONE
== END ==
LOC: M ONCR 14:24
PROVIDERS: ATTEND General Practice
DX: C50.911 Malignant neoplasm of unspecified site of right female breast (principal); D32.0 Benign neoplasm of cerebral meninges; J45.909 Unspecified asthma, uncomplicated; K21.9 Gastro-esophageal reflux disease without esophagitis; K76.9 Liver disease, unspecified; M54.50 Low back pain, unspecified; N60.19 Diffuse cystic mastopathy of unspecified breast; N80.9 Endometriosis, unspecified; Z79.51 Long term (current) use of inhaled steroids; Z79.811 Long term (current) use of aromatase inhibitors; Z79.899 Other long term (current) drug therapy; Z80.3 Family history of malignant neoplasm of breast; Z82.49 Family history of ischemic heart disease and other diseases of the circulatory system; Z83.3 Family history of diabetes mellitus; Z87.39 Personal history of other diseases of the musculoskeletal system and connective tissue

== ENCOUNTER → 2022-03-27 | Outpatient (CLI) | payer OTHER ==
[2022-03-27 15:21] LABS: INR 1.03; PROTHROMBIN TIME 13.7 SECONDS (12.5-14.5)
[2022-03-27 15:28] LABS: BILIRUBIN,DIRECT < 0.1 MG/DL (<0.4); TOTAL IRON BINDING CAPACITY 270 UG/DL (250-425)
[2022-03-27 15:29] LABS: IRON (FE) 79 UG/DL (50-170); PERCENT SATURATION 29.3 % (13.2-45.0)
[2022-03-27 15:42] LABS: HEPATITIS B SURFACE ANTIGEN NEGATIVE (NEGATIVE)
[2022-03-27 16:03] LABS: HEPATITIS C VIRUS ABY INDEX 0.2 INDEX (<0.8)
[2022-03-27 16:04] LABS: HEPATITIS B CORE ANTIBODY IGM NEGATIVE (NEGATIVE)
[2022-03-27 16:07] LABS: ALBUMIN 3.7 G/DL (3.2-5.2); ALKALINE PHOSPHATASE 89 U/L (46-116); ALT/SGPT 40 U/L (7.0-40); AST/SGOT 19 U/L (<34); BILIRUBIN,TOTAL 0.2 MG/DL (0.3-1.2); TOTAL PROTEIN 6.1 G/DL (5.7-8.2)
== END ==
LOC: M LAB 13:23
PROVIDERS: ATTEND Internal Medicine Gastroenterology
DX: K76.6 Portal hypertension (principal)

== ENCOUNTER → 2022-04-01 | Outpatient (CLI) | payer OTHER | LOC: M WHC 06:57 | PROVIDERS: ATTEND Internal Medicine Gastroenterology | DX: K76.6 Portal hypertension (principal); C78.7 Secondary malignant neoplasm of liver and intrahepatic bile duct; R16.1 Splenomegaly, not elsewhere classified; K82.4 Cholesterolosis of gallbladder; D18.03 Hemangioma of intra-abdominal structures ==

== ENCOUNTER 2022-04-02 10:25 | Outpatient (RCR) | payer OTHER ==
[~2022-04-02 10:25] MED LIST changes: +NYST-38 SS; -NYST50SS SS
[2022-04-24] MEDS ORDERED: TRIA1OI TOP (10:08)
[2022-04-24] MEDS ORDERED: ATIV1TAB10 PO (13:07)
== END 2022-04-19 ==
LOC: M ONCR 10:25
PROVIDERS: ATTEND General Practice
DX: D32.0 Benign neoplasm of cerebral meninges (principal)

== ENCOUNTER → 2022-04-07 | Outpatient (CLI) | payer OTHER ==
[~2022-04-07] MED LIST changes: -NYST-38 SS; +NYST50SS SS; +PROHANCE 279.3MG/ML 15ML VIAL ONE; +PROHANCE 279.3MG/ML 5ML VIAL ONE
== END ==
LOC: M PLAIMG 09:31
PROVIDERS: ATTEND Nurse Practitioner
DX: C50.919 Malignant neoplasm of unspecified site of unspecified female breast (principal); R16.2 Hepatomegaly with splenomegaly, not elsewhere classified

== ENCOUNTER → 2022-04-30 | Outpatient (CLI) | payer OTHER ==
[~2022-04-30] MED LIST changes: +NYST-38 SS; -NYST50SS SS; -PROHANCE 279.3MG/ML 15ML VIAL ONE; -PROHANCE 279.3MG/ML 5ML VIAL ONE; +TRIA1OI TOP
== END ==
LOC: M CARPUL 11:05
PROVIDERS: ATTEND Nurse Practitioner
DX: I42.7 Cardiomyopathy due to drug and external agent (principal); C50.919 Malignant neoplasm of unspecified site of unspecified female breast; I35.8 Other nonrheumatic aortic valve disorders; I36.0 Nonrheumatic tricuspid (valve) stenosis

== ENCOUNTER → 2022-05-15 | Outpatient (CLI) | payer OTHER ==
[~2022-05-15] MED LIST changes: +DEXA2TA PO
== END ==
LOC: M RAD 11:56
PROVIDERS: ATTEND Nurse Practitioner
DX: M79.622 Pain in left upper arm (principal); Z95.828 Presence of other vascular implants and grafts

== ENCOUNTER → 2022-05-20 | Outpatient (RCR) | payer OTHER | LOC: M ONCR 04-28 10:25 | PROVIDERS: ATTEND General Practice | DX: D32.0 Benign neoplasm of cerebral meninges (principal) ==

== ENCOUNTER 2022-06-09 10:49 | Outpatient (RCR) | payer OTHER ==
[~2022-06-09 10:49] MED LIST changes: +CEFD300C41 PO
== END 2022-06-17 ==
LOC: M ONCR 10:49
PROVIDERS: ATTEND General Practice
DX: D32.0 Benign neoplasm of cerebral meninges (principal)

== ENCOUNTER → 2022-07-17 | Outpatient (CLI) | payer OTHER ==
[~2022-07-17] MED LIST changes: +DIPH-435 PO; +PROHANCE 279.3MG/ML 15ML VIAL ONE; +PROHANCE 279.3MG/ML 5ML VIAL ONE
== END ==
LOC: M PLAIMG 10:32
PROVIDERS: ATTEND Internal Medicine Hematology & Oncology
DX: C50.919 Malignant neoplasm of unspecified site of unspecified female breast (principal)
CPT/HCPCS: 77049; A9576

== ENCOUNTER → 2022-07-21 | Outpatient (CLI) | payer OTHER ==
[~2022-07-21] MED LIST changes: -PROHANCE 279.3MG/ML 15ML VIAL ONE; -PROHANCE 279.3MG/ML 5ML VIAL ONE
== END ==
LOC: M PLARAD 08:07
PROVIDERS: ATTEND Internal Medicine Hematology & Oncology
DX: C50.411 Malignant neoplasm of upper-outer quadrant of right female breast (principal); K76.89 Other specified diseases of liver
CPT/HCPCS: 78815; A9552

== ENCOUNTER → 2022-08-18 | Outpatient (CLI) | payer OTHER ==
[~2022-08-18] MED LIST changes: +PROHANCE 279.3MG/ML 15ML VIAL As Ordered ONE; +PROHANCE 279.3MG/ML 5ML VIAL As Ordered ONE
== END ==
LOC: M RAD 08:06
PROVIDERS: ATTEND General Practice
DX: D32.0 Benign neoplasm of cerebral meninges (principal); H74.93 Unspecified disorder of middle ear and mastoid, bilateral
CPT/HCPCS: 70553; A9576

== ENCOUNTER → 2022-08-22 | Outpatient (CLI) | payer OTHER ==
[~2022-08-22] MED LIST changes: -PROHANCE 279.3MG/ML 15ML VIAL As Ordered ONE; -PROHANCE 279.3MG/ML 5ML VIAL As Ordered ONE
== END ==
LOC: M CARPUL 09:24
PROVIDERS: ATTEND Internal Medicine Hematology & Oncology
DX: R00.0 Tachycardia, unspecified (principal); I08.1 Rheumatic disorders of both mitral and tricuspid valves

== ENCOUNTER 2022-09-03 16:39 | Emergency (ER) | payer OTHER ==
[~2022-09-03] VITALS: Ht 175.3 cm; Wt 96.7 kg
[2022-09-03] MEDS ORDERED: SODIUM CHLORIDE 0.9% INJ 10 ML SYR IV PRN (17:20)
[2022-09-03 17:53] LABS: BASO # 0.1 10^3/uL (0.0-0.2); BASO % 0.6 % (0.0-1.0); EOS # 0.5 10^3/uL (0.0-0.5); EOS % 4.9 % (0.0-3.0); HEMATOCRIT 31.8 % (36.0-47.0); HEMOGLOBIN 10.2 g/dl (12.0-15.5); LYMPH % 18.4 % (24.0-44.0); MEAN CORPUSCULAR HEMOGLOBIN 27.6 pg (27.0-33.0); MEAN CORPUSCULAR HGB CONC 32.1 g/dl (32.0-36.5); MEAN CORPUSCULAR VOLUME 85.9 fl (80.0-96.0); MONO # 0.6 10^3/uL (0.0-0.8); MONO % 5.5 % (2.0-8.0); NEUTROPHILS # 7.7 10^3/uL (1.5-8.5); NEUTROPHILS % 70.2 % (36.0-66.0); PLATELET COUNT, AUTOMATED 255 10^3/uL (150-450)
[2022-09-03] MEDS ORDERED: ISOVUE-370 76% 100ML VIAL As Ordered ONE (18:18)
[2022-09-03 18:35] LABS: CK-MB VALUE MASS < 1.0 NG/ML (<3.6); LIPASE 33 U/L (12-53)
[2022-09-03 18:37] LABS: CPK CREATINE PHOSPHOKINASE 29 U/L (34-145); MB/CK RELATIVE INDEX 3.44 (< OR =4)
[2022-09-03 18:41] LABS: ALBUMIN 2.7 G/DL (3.2-5.2); ALKALINE PHOSPHATASE 91 U/L (46-116); ALT/SGPT 15 U/L (7.0-40); AST/SGOT < 8 U/L (<34); BILIRUBIN,DIRECT 0.1 MG/DL (<0.4); BILIRUBIN,TOTAL 0.3 MG/DL (0.3-1.2); BLOOD UREA NITROGEN 12 MG/DL (9-23); CALCIUM LEVEL 6.9 MG/DL (8.5-10.1); CARBON DIOXIDE LEVEL 17 MMOL/L (20-31); CHLORIDE LEVEL 118 MMOL/L (98-107); CREATININE FOR GFR 0.78 MG/DL (0.55-1.30); GLOMERULAR FILTRATION RATE > 60.0 (>58); GLUCOSE, FASTING 66 MG/DL (60-100); POTASSIUM SERUM 2.4 MMOL/L (3.5-5.1); SODIUM LEVEL 146 MMOL/L (136-145); TOTAL PROTEIN 4.8 G/DL (5.7-8.2)
[2022-09-03] MEDS ORDERED: KCL 10MEQ/100ML SWI (KRUN) 10 MEQ in IV 1 EA IV ONE (18:45)
[2022-09-03 18:57] LABS: MAGNESIUM LEVEL 1.4 MG/DL (1.8-2.4)
[2022-09-03] MEDS ORDERED: KCL 20MEQ IN 100ML SWI (KRUN) 20 MEQ in IV 1 EA IV ONE ×2 (19:00)
[2022-09-03 19:30] VITALS: BP 137/93; TEMP 97.8; O2SAT 99
[2022-09-03] MEDS ORDERED: POTA-151 PO (19:43)
[2022-09-03] MEDS ORDERED: MAG SULF 1GM/100ML (MAG RUN) 1 GM in IV 1 EA IV ONE (20:30)
[2022-09-03] MEDS ORDERED: MAGNESIUM SULFATE 1GM/100ML D5W BAG (10MG/ML) As Ordered ONE (20:32)
[2022-09-03 20:46] LABS: CK-MB VALUE MASS < 1.0 NG/ML (<3.6); CPK CREATINE PHOSPHOKINASE 36 U/L (34-145); MB/CK RELATIVE INDEX 2.77 (< OR =4)
[2022-09-08] MEDS ORDERED: POTA20EL PO (10:56)
== END 2022-09-03 21:42 | disposition home or self-care (01) ==
LOC: M ED 16:39
DX: E87.6 Hypokalemia (principal); E83.42 Hypomagnesemia; R00.2 Palpitations; K21.9 Gastro-esophageal reflux disease without esophagitis; J45.909 Unspecified asthma, uncomplicated; F41.9 Anxiety disorder, unspecified; Z79.899 Other long term (current) drug therapy; Z79.51 Long term (current) use of inhaled steroids
CPT/HCPCS: 71275; 80047; 80048; 80076; 82550; 82553; 83690; 83735; 85025; 93005; 93041; 94760; 96365; 96366; 96367; 99284; J3475; Q9967

== ENCOUNTER → 2022-09-05 | Outpatient (CLI) | payer OTHER ==
[~2022-09-05] MED LIST changes: +POTA20EL PO
== END ==
LOC: M ONCR 10:19
PROVIDERS: ATTEND General Practice
DX: D32.0 Benign neoplasm of cerebral meninges (principal); C50.911 Malignant neoplasm of unspecified site of right female breast; Z85.05 Personal history of malignant neoplasm of liver; J30.89 Other allergic rhinitis; Z71.2 Person consulting for explanation of examination or test findings; Z79.51 Long term (current) use of inhaled steroids; Z79.811 Long term (current) use of aromatase inhibitors; Z79.899 Other long term (current) drug therapy; Z92.3 Personal history of irradiation

== ENCOUNTER → 2022-09-29 | Outpatient (CLI) | payer OTHER ==
[~2022-09-29] MED LIST changes: +ALEN70TA82 PO
== END ==
LOC: M RAD 13:32
PROVIDERS: ATTEND Nurse Practitioner
DX: T82.848A Pain due to vascular prosthetic devices, implants and grafts, initial encounter (principal); Y83.1 Surgical operation with implant of artificial internal device as the cause of abnormal reaction of the patient, or of later complication, without mention of misadventure at the time of the procedure

== ENCOUNTER → 2022-10-01 | Outpatient (CLI) | payer OTHER | LOC: M WHC 10:52 | PROVIDERS: ATTEND Nurse Practitioner | DX: C50.911 Malignant neoplasm of unspecified site of right female breast (principal); Z80.3 Family history of malignant neoplasm of breast; N63.10 Unspecified lump in the right breast, unspecified quadrant ==

== ENCOUNTER → 2022-11-20 | Outpatient (REF) | payer OTHER ==
[~2022-11-20] MED LIST changes: +AMOX875T2 PO; -LIDO1CRE42 TOP; +LIDO30CR18 TOP
== END ==
LOC: M LAB REF 17:06
PROVIDERS: ATTEND Nurse Practitioner Family
DX: N39.0 Urinary tract infection, site not specified (principal)

== ENCOUNTER → 2022-11-25 | Outpatient (CLI) | payer OTHER | LOC: M CARPUL 14:56 | PROVIDERS: ATTEND Internal Medicine Hematology & Oncology | DX: C50.919 Malignant neoplasm of unspecified site of unspecified female breast (principal) ==

== ENCOUNTER → 2022-11-26 | Outpatient (CLI) | payer OTHER ==
[~2022-11-26] MED LIST changes: +GASTROGRAFIN SOLUTION 30ML As Ordered ONE; +ISOVUE-370 76% 100ML VIAL As Ordered ONE
== END ==
LOC: M RAD 12:00
PROVIDERS: ATTEND Nurse Practitioner
DX: C79.81 Secondary malignant neoplasm of breast (principal); I42.7 Cardiomyopathy due to drug and external agent; R93.5 Abnormal findings on diagnostic imaging of other abdominal regions, including retroperitoneum
CPT/HCPCS: 71260; 74177; Q9963; Q9967

== ENCOUNTER → 2022-12-04 | Outpatient (CLI) | payer OTHER ==
[~2022-12-04] MED LIST changes: -GASTROGRAFIN SOLUTION 30ML As Ordered ONE; -ISOVUE-370 76% 100ML VIAL As Ordered ONE; +PROHANCE 279.3MG/ML 15ML VIAL ONE; +PROHANCE 279.3MG/ML 5ML VIAL ONE; +TAMO20TA8 PO
== END ==
LOC: M PLAIMG 10:32
PROVIDERS: ATTEND Radiology Radiation Oncology
DX: D32.0 Benign neoplasm of cerebral meninges (principal); R90.82 White matter disease, unspecified; H70.12 Chronic mastoiditis, left ear
CPT/HCPCS: 70553; A9576

== ENCOUNTER → 2022-12-09 | Outpatient (CLI) | payer OTHER ==
[~2022-12-09] MED LIST changes: -PROHANCE 279.3MG/ML 15ML VIAL ONE; -PROHANCE 279.3MG/ML 5ML VIAL ONE
== END ==
LOC: M ONCR 10:24
PROVIDERS: ATTEND General Practice
DX: D32.0 Benign neoplasm of cerebral meninges (principal); C50.411 Malignant neoplasm of upper-outer quadrant of right female breast; C78.7 Secondary malignant neoplasm of liver and intrahepatic bile duct; Z71.2 Person consulting for explanation of examination or test findings; Z79.810 Long term (current) use of selective estrogen receptor modulators (SERMs); Z79.899 Other long term (current) drug therapy

== ENCOUNTER → 2022-12-31 | Outpatient (CLI) | payer OTHER ==
[~2022-12-31] MED LIST changes: +CEFD300C PO
== END ==
LOC: M RAD 07:17
PROVIDERS: ATTEND Otolaryngology
DX: E04.2 Nontoxic multinodular goiter (principal)

== ENCOUNTER → 2023-02-11 | Outpatient (CLI) | payer OTHER ==
[~2023-02-11] MED LIST changes: +AMBI5TAB PO; -CEFD300C41 PO; +CEFD300C42 PO; +LIDOCAINE 1% MDV 20ML VIAL As Ordered ONE
[2023-02-11 12:20] VITALS: BP 127/80; O2SAT 100
== END ==
LOC: M IRPRO 09:28
PROVIDERS: ATTEND Internal Medicine Hematology & Oncology
DX: C78.7 Secondary malignant neoplasm of liver and intrahepatic bile duct (principal); C50.919 Malignant neoplasm of unspecified site of unspecified female breast

== ENCOUNTER → 2023-02-26 | Outpatient (CLI) | payer OTHER ==
[~2023-02-26] MED LIST changes: +ARNU1INH3; +COLA100C5 PO; -LIDOCAINE 1% MDV 20ML VIAL As Ordered ONE; +TIZA2TA
== END ==
LOC: M CARPUL 10:52
PROVIDERS: ATTEND Internal Medicine Hematology & Oncology
DX: C50.919 Malignant neoplasm of unspecified site of unspecified female breast (principal); I08.1 Rheumatic disorders of both mitral and tricuspid valves

== ENCOUNTER → 2023-04-07 | Outpatient (CLI) | payer OTHER ==
[~2023-04-07] MED LIST changes: +CEFD1CAP9 PO; -CEFD300C42 PO
[2023-04-07 16:36] LABS: CHOLESTEROL RISK RATIO 3.76 (<5); HDL CHOLESTEROL 36.7 MG/DL (>40); LDL CHOLESTEROL 67.3 MG/DL (<100); NON-HDL-C 101.3 MG/DL
[2023-04-07 18:04] LABS: HEMOGLOBIN A1c 5.3 % (4.0-6.0)
== END ==
LOC: M PLALAB 14:24
PROVIDERS: ATTEND Student in an Organized Health Care Education/Training Program
DX: Z13.1 Encounter for screening for diabetes mellitus (principal); Z13.220 Encounter for screening for lipoid disorders

== ENCOUNTER → 2023-04-09 | Outpatient (CLI) | payer OTHER ==
[~2023-04-09] MED LIST changes: +PRED20TA; +PROMSYP
== END ==
LOC: M RAD 07:48
PROVIDERS: ATTEND Internal Medicine Gastroenterology
DX: K76.6 Portal hypertension (principal); R16.0 Hepatomegaly, not elsewhere classified; R16.1 Splenomegaly, not elsewhere classified

== ENCOUNTER → 2023-04-22 | Outpatient (CLI) | payer OTHER ==
[~2023-04-22] MED LIST changes: +GASTROGRAFIN SOLUTION 30ML As Ordered ONE; +ISOVUE-370 76% 100ML VIAL As Ordered ONE
== END ==
LOC: M RAD 10:38
PROVIDERS: ATTEND Internal Medicine Hematology & Oncology
DX: C78.7 Secondary malignant neoplasm of liver and intrahepatic bile duct (principal); C50.919 Malignant neoplasm of unspecified site of unspecified female breast; R16.1 Splenomegaly, not elsewhere classified; K44.9 Diaphragmatic hernia without obstruction or gangrene; K57.90 Diverticulosis of intestine, part unspecified, without perforation or abscess without bleeding; J98.11 Atelectasis; E04.2 Nontoxic multinodular goiter; M89.9 Disorder of bone, unspecified
CPT/HCPCS: 71260; 74177; Q9963; Q9967

== ENCOUNTER → 2023-05-04 | Outpatient (CLI) | payer OTHER ==
[~2023-05-04] MED LIST changes: -GASTROGRAFIN SOLUTION 30ML As Ordered ONE; -ISOVUE-370 76% 100ML VIAL As Ordered ONE; +PROHANCE 279.3MG/ML 15ML VIAL As Ordered ONE; +PROHANCE 279.3MG/ML 5ML VIAL As Ordered ONE
== END ==
LOC: M RAD 12:58
PROVIDERS: ATTEND General Practice
DX: D32.0 Benign neoplasm of cerebral meninges (principal); D18.02 Hemangioma of intracranial structures
CPT/HCPCS: 70553; A9576

== ENCOUNTER → 2023-05-11 | Outpatient (CLI) | payer OTHER ==
[~2023-05-11] MED LIST changes: -PROHANCE 279.3MG/ML 15ML VIAL As Ordered ONE; -PROHANCE 279.3MG/ML 5ML VIAL As Ordered ONE
== END ==
LOC: M WHC 10:46
PROVIDERS: ATTEND Nurse Practitioner
DX: M85.89 Other specified disorders of bone density and structure, multiple sites (principal); Z79.899 Other long term (current) drug therapy

== ENCOUNTER → 2023-05-13 | Outpatient (CLI) | payer OTHER | LOC: M RAD 09:25 | PROVIDERS: ATTEND Nurse Practitioner | DX: C79.9 Secondary malignant neoplasm of unspecified site (principal); Z79.899 Other long term (current) drug therapy | CPT/HCPCS: 78306; A9503 ==

== ENCOUNTER → 2023-05-20 | Outpatient (CLI) | payer OTHER | LOC: M ONCR 10:00 | PROVIDERS: ATTEND General Practice | DX: D32.0 Benign neoplasm of cerebral meninges (principal); C50.911 Malignant neoplasm of unspecified site of right female breast; C78.7 Secondary malignant neoplasm of liver and intrahepatic bile duct; Z71.2 Person consulting for explanation of examination or test findings; Z79.51 Long term (current) use of inhaled steroids; Z79.811 Long term (current) use of aromatase inhibitors; Z79.899 Other long term (current) drug therapy; Z92.3 Personal history of irradiation ==

== ENCOUNTER → 2023-07-01 | Outpatient (CLI) | payer OTHER ==
[~2023-07-01] MED LIST changes: +EQL50TAB2 PO; -POTA20EL PO; +POTA20LI16 PO; -TIZA2TA; +TIZA2TA PO; +VITA100093 PO
== END ==
LOC: M CARPUL 09:03
PROVIDERS: ATTEND Internal Medicine Hematology & Oncology
DX: I42.7 Cardiomyopathy due to drug and external agent (principal); Z79.69 Long term (current) use of other immunomodulators and immunosuppressants

== ENCOUNTER → 2023-07-13 | Outpatient (REF) | payer OTHER | LOC: M SFHCWAGY 10:52 | PROVIDERS: ATTEND Nurse Practitioner Family | DX: Z12.4 Encounter for screening for malignant neoplasm of cervix (principal); R87.612 Low grade squamous intraepithelial lesion on cytologic smear of cervix (LGSIL) ==

== ENCOUNTER → 2023-07-14 | Day surgery (SDC) | payer OTHER ==
[~2023-07-14] VITALS: Ht 175.3 cm; Wt 101.6 kg
[~2023-07-14] MED LIST changes: +LIDOCAINE 2% 100MG/5ML SDV (FOR ANES.) As Ordered ONE; +NS 1,000 ML IV ONE; +fentaNYL 100 MCG/2 ML INJECTION As Ordered ONE; +propofoL 200 MG/20 ML VIAL As Ordered ONE
[2023-07-14 13:05] VITALS: BP 130/84; TEMP 97.3; O2SAT 99
== END | disposition home or self-care (01) ==
LOC: M OPP 11:18
PROVIDERS: ATTEND Internal Medicine Gastroenterology
DX: K76.6 Portal hypertension (principal); K29.70 Gastritis, unspecified, without bleeding; Z79.1 Long term (current) use of non-steroidal anti-inflammatories (NSAID); Z79.51 Long term (current) use of inhaled steroids; Z79.810 Long term (current) use of selective estrogen receptor modulators (SERMs); Z79.899 Other long term (current) drug therapy
CPT/HCPCS: 43239; 88305; J3010

== ENCOUNTER → 2023-08-11 | Outpatient (CLI) | payer OTHER ==
[~2023-08-11] MED LIST changes: -LIDOCAINE 2% 100MG/5ML SDV (FOR ANES.) As Ordered ONE; -NS 1,000 ML IV ONE; +OXYB5TAB14 PO; -fentaNYL 100 MCG/2 ML INJECTION As Ordered ONE; -propofoL 200 MG/20 ML VIAL As Ordered ONE
== END ==
LOC: M ONCM 07:56
PROVIDERS: ATTEND Dietitian, Registered
DX: C50.911 Malignant neoplasm of unspecified site of right female breast (principal); C78.7 Secondary malignant neoplasm of liver and intrahepatic bile duct; Z71.3 Dietary counseling and surveillance; Z68.33 Body mass index [BMI] 33.0-33.9, adult

== ENCOUNTER → 2023-08-12 | Outpatient (CLI) | payer OTHER ==
[~2023-08-12] MED LIST changes: +GASTROGRAFIN SOLUTION 30ML As Ordered ONE; +ISOVUE-370 76% 100ML VIAL As Ordered ONE
== END ==
LOC: M RAD 13:47
PROVIDERS: ATTEND Nurse Practitioner
DX: C50.919 Malignant neoplasm of unspecified site of unspecified female breast (principal); R16.2 Hepatomegaly with splenomegaly, not elsewhere classified; K57.90 Diverticulosis of intestine, part unspecified, without perforation or abscess without bleeding; C78.7 Secondary malignant neoplasm of liver and intrahepatic bile duct
CPT/HCPCS: 71260; 74177; Q9963; Q9967

== ENCOUNTER → 2023-09-01 | Outpatient (CLI) | payer OTHER ==
[~2023-09-01] MED LIST changes: -GASTROGRAFIN SOLUTION 30ML As Ordered ONE; -ISOVUE-370 76% 100ML VIAL As Ordered ONE
== END ==
LOC: M PLAIMG 10:34
PROVIDERS: ATTEND Physician Assistant
DX: J32.8 Other chronic sinusitis (principal); J34.2 Deviated nasal septum

== ENCOUNTER → 2023-09-08 | Outpatient (CLI) | payer OTHER | LOC: M ONCM 09:14 | PROVIDERS: ATTEND Dietitian, Registered | DX: C50.911 Malignant neoplasm of unspecified site of right female breast (principal); C78.7 Secondary malignant neoplasm of liver and intrahepatic bile duct; Z68.34 Body mass index [BMI] 34.0-34.9, adult; Z71.3 Dietary counseling and surveillance ==

== ENCOUNTER → 2023-10-05 | Outpatient (CLI) | payer OTHER ==
[~2023-10-05] MED LIST changes: +POTA-150 PO
== END ==
LOC: M CARPUL 08:54
PROVIDERS: ATTEND Specialist
DX: C50.919 Malignant neoplasm of unspecified site of unspecified female breast (principal); Z79.899 Other long term (current) drug therapy

== ENCOUNTER → 2023-10-06 | Outpatient (CLI) | payer OTHER | LOC: M ONCM 11:14 | PROVIDERS: ATTEND Dietitian, Registered | DX: C50.911 Malignant neoplasm of unspecified site of right female breast (principal); C78.7 Secondary malignant neoplasm of liver and intrahepatic bile duct; Z71.3 Dietary counseling and surveillance; Z68.34 Body mass index [BMI] 34.0-34.9, adult ==

== ENCOUNTER → 2024-01-05 | Outpatient (CLI) | payer OTHER | LOC: M CARPUL 10:59 | PROVIDERS: ATTEND Specialist | DX: C50.919 Malignant neoplasm of unspecified site of unspecified female breast (principal); Z79.69 Long term (current) use of other immunomodulators and immunosuppressants ==

== ENCOUNTER → 2024-02-25 | Outpatient (CLI) | payer OTHER ==
[~2024-02-25] MED LIST changes: -AZEL0.1S; +AZEL137S8; +GASTROGRAFIN SOLUTION 30ML As Ordered ONE; +ISOVUE-370 76% 100ML VIAL As Ordered ONE
== END ==
LOC: M RAD 13:14
PROVIDERS: ATTEND Internal Medicine Hematology & Oncology
DX: C50.919 Malignant neoplasm of unspecified site of unspecified female breast (principal); K44.9 Diaphragmatic hernia without obstruction or gangrene; K76.9 Liver disease, unspecified
CPT/HCPCS: 71260; 74177; Q9963; Q9967

== ENCOUNTER → 2024-05-13 | Outpatient (CLI) | payer OTHER ==
[~2024-05-13] MED LIST changes: -GASTROGRAFIN SOLUTION 30ML As Ordered ONE; -ISOVUE-370 76% 100ML VIAL As Ordered ONE; +PROHANCE 279.3MG/ML 15ML VIAL As Ordered ONE; +PROHANCE 279.3MG/ML 5ML VIAL As Ordered ONE
== END ==
LOC: M RAD 08:38
PROVIDERS: ATTEND General Practice
DX: D32.0 Benign neoplasm of cerebral meninges (principal)
CPT/HCPCS: 70553; A9576

== ENCOUNTER → 2024-05-20 | Outpatient (CLI) | payer OTHER ==
[~2024-05-20] MED LIST changes: -PROHANCE 279.3MG/ML 15ML VIAL As Ordered ONE; -PROHANCE 279.3MG/ML 5ML VIAL As Ordered ONE
== END ==
LOC: M ONCR 10:16
PROVIDERS: ATTEND General Practice
DX: D32.0 Benign neoplasm of cerebral meninges (principal); C50.919 Malignant neoplasm of unspecified site of unspecified female breast; H53.8 Other visual disturbances; Z17.410 Hormone receptor positive with human epidermal growth factor receptor 2 positive status; Z92.3 Personal history of irradiation; Z79.810 Long term (current) use of selective estrogen receptor modulators (SERMs); Z85.05 Personal history of malignant neoplasm of liver; J30.2 Other seasonal allergic rhinitis; Z79.899 Other long term (current) drug therapy; Z79.891 Long term (current) use of opiate analgesic; Z79.620 Long term (current) use of immunosuppressive biologic; Z79.52 Long term (current) use of systemic steroids

== ENCOUNTER → 2024-06-13 | Outpatient (CLI) | payer OTHER ==
[~2024-06-13] MED LIST changes: +ISOVUE-370 76% 100ML VIAL As Ordered ONE
== END ==
LOC: M RAD 12:25
PROVIDERS: ATTEND Internal Medicine Hematology & Oncology
DX: C50.919 Malignant neoplasm of unspecified site of unspecified female breast (principal); K43.9 Ventral hernia without obstruction or gangrene; K44.9 Diaphragmatic hernia without obstruction or gangrene; R16.2 Hepatomegaly with splenomegaly, not elsewhere classified; K76.0 Fatty (change of) liver, not elsewhere classified; K57.90 Diverticulosis of intestine, part unspecified, without perforation or abscess without bleeding; K76.89 Other specified diseases of liver; E04.2 Nontoxic multinodular goiter; R91.8 Other nonspecific abnormal finding of lung field; J98.11 Atelectasis
CPT/HCPCS: 71260; 74177; Q9967

== ENCOUNTER → 2024-06-16 | Outpatient (CLI) | payer OTHER ==
[~2024-06-16] MED LIST changes: -ISOVUE-370 76% 100ML VIAL As Ordered ONE
== END ==
LOC: M CARPUL 10:03
PROVIDERS: ATTEND Specialist
DX: C50.919 Malignant neoplasm of unspecified site of unspecified female breast (principal); I34.0 Nonrheumatic mitral (valve) insufficiency; I36.1 Nonrheumatic tricuspid (valve) insufficiency

== ENCOUNTER 2024-08-19 15:58 | Emergency (ER) | payer OTHER ==
[~2024-08-19] VITALS: Ht 175.3 cm; Wt 102.4 kg
[~2024-08-19 15:58] MED LIST changes: -AMBI5TAB PO; +CAPE1TAB2 PO; +DULO60CA35 PO; +FAMO20TA PO; +FAMO40TA3 PO; +KISQ200T PO; +MAG30ORA18 PO; -MYLASSUD PO; +OMEP-173; +RIBO1TAB PO; +TUCA150T PO; +ZOLP-532 PO
[2024-08-19] MEDS ORDERED: SYMB16INH (17:46)
[2024-08-19] MEDS ORDERED: POTA-298 (17:46)
[2024-08-19] MEDS ORDERED: FLON1SPR NARES (17:46)
[2024-08-19] MEDS: dexAMETHasone 20MG/5ML VIAL IV ONE (20:30)
[2024-08-19 20:59] LABS: BASO # 0.1 10^3/uL (0.0-0.2); EOS # 0.2 10^3/uL (0.0-0.5); EOS % 2.5 % (0.0-3.0); HEMATOCRIT 32.8 % (36.0-47.0); LYMPH # 2.4 10^3/uL (1.5-5.0); LYMPH % 38.9 % (24.0-44.0); MEAN CORPUSCULAR HEMOGLOBIN 29.6 pg (27.0-33.0); MEAN CORPUSCULAR HGB CONC 33.5 g/dl (32.0-36.5); MEAN CORPUSCULAR VOLUME 88.2 fl (80.0-96.0); MONO # 0.3 10^3/uL (0.0-0.8); MONO % 5.1 % (2.0-8.0); NEUTROPHILS # 3.2 10^3/uL (1.5-8.5); NEUTROPHILS % 52.3 % (36.0-66.0); PLATELET COUNT, AUTOMATED 212 10^3/uL (150-450); RED BLOOD COUNT 3.72 10^6/uL (4.00-5.40); WHITE BLOOD COUNT 6.1 10^3/uL (4.0-10.0)
[2024-08-19 22:27] LABS: CALCIUM LEVEL 9.5 MG/DL (8.5-10.1); CREATININE FOR GFR 1.37 MG/DL (0.55-1.30); GLOMERULAR FILTRATION RATE 49.1 (>58); POTASSIUM SERUM 3.7 MMOL/L (3.5-5.1)
[2024-08-19] MEDS ORDERED: ISOVUE-370 76% 100ML VIAL As Ordered ONE (22:31)
[2024-08-20] MEDS: LR 1,000 ML IV ONE (00:06)
[2024-08-20] MEDS ORDERED: PRED20TA PO (00:24)
[2024-08-20] MEDS ORDERED: ALBU2.5V10 NEB (00:25)
[2024-08-20 01:21] VITALS: BP 141/86; TEMP 96.8; O2SAT 97
[2024-08-22] MEDS ORDERED: RIBO1TAB PO (09:13)
== END 2024-08-20 01:30 | disposition home or self-care (01) ==
LOC: M ED 15:58
DX: J45.901 Unspecified asthma with (acute) exacerbation (principal); T45.1X5A Adverse effect of antineoplastic and immunosuppressive drugs, initial encounter; R79.89 Other specified abnormal findings of blood chemistry; R93.2 Abnormal findings on diagnostic imaging of liver and biliary tract; R91.1 Solitary pulmonary nodule; R93.89 Abnormal findings on diagnostic imaging of other specified body structures; C50.919 Malignant neoplasm of unspecified site of unspecified female breast; N18.9 Chronic kidney disease, unspecified; J30.89 Other allergic rhinitis; Z79.899 Other long term (current) drug therapy
CPT/HCPCS: 36415; 71275; 80048; 83880; 85025; 87486; 87581; 87633; 87798; 93005; 93041; 94760; 96361; 96374; 99285; J1100; Q9967

== ENCOUNTER → 2024-10-26 | Outpatient (CLI) | payer OTHER ==
[~2024-10-26] MED LIST changes: +ALBU2.5V10 NEB; -EQL50TAB2 PO; +FLON1SPR NARES; +ISOVUE-370 76% 100 ML VIAL As Ordered ONE; +POTA-298; +PRED20TA PO; +SYMB16INH; +TRAZ-252 PO; +VITA1TAB82 PO
== END ==
LOC: M RAD 07:57
DX: C50.919 Malignant neoplasm of unspecified site of unspecified female breast (principal); K76.89 Other specified diseases of liver; D73.89 Other diseases of spleen
CPT/HCPCS: 70470; 71260; 74177; Q9967

== ENCOUNTER → 2025-02-01 | Outpatient (CLI) | payer OTHER ==
[~2025-02-01] MED LIST changes: -ISOVUE-370 76% 100 ML VIAL As Ordered ONE
[2025-02-01 10:53] VITALS: TEMP 98.4
[2025-02-01 12:03] VITALS: BP 134/82; O2SAT 98
== END ==
LOC: M WHCPRO 10:22
PROVIDERS: ATTEND Specialist
DX: C50.212 Malignant neoplasm of upper-inner quadrant of left female breast (principal); N63.11 Unspecified lump in the right breast, upper outer quadrant; N63.22 Unspecified lump in the left breast, upper inner quadrant

== ENCOUNTER → 2025-02-20 | Outpatient (CLI) | payer OTHER ==
[~2025-02-20] MED LIST changes: +COLE1TAB PO; +LOPE-39 PO; +LOPE2TAB12 PO; +NERL40TA PO; +OMEP10CASR PO; +PROHANCE 279.3MG/ML 15ML VIAL ONE; +PROHANCE 279.3MG/ML 5ML VIAL ONE
== END ==
LOC: M PLAIMG 12:16
PROVIDERS: ATTEND Specialist
DX: C50.912 Malignant neoplasm of unspecified site of left female breast (principal); N60.91 Unspecified benign mammary dysplasia of right breast; N60.12 Diffuse cystic mastopathy of left breast
CPT/HCPCS: 77049; A9576

== ENCOUNTER → 2025-02-28 | Outpatient (CLI) | payer OTHER ==
[~2025-02-28] MED LIST changes: -PROHANCE 279.3MG/ML 15ML VIAL ONE; -PROHANCE 279.3MG/ML 5ML VIAL ONE
== END ==
LOC: M ONCR 13:30
PROVIDERS: ATTEND General Practice
DX: D32.0 Benign neoplasm of cerebral meninges (principal); C78.7 Secondary malignant neoplasm of liver and intrahepatic bile duct; Z85.3 Personal history of malignant neoplasm of breast; J30.89 Other allergic rhinitis; Z79.51 Long term (current) use of inhaled steroids; Z79.899 Other long term (current) drug therapy; Z92.3 Personal history of irradiation

== ENCOUNTER → 2025-04-19 | Outpatient (RCR) | payer OTHER ==
[2025-04-18 15:04] LABS: APPEARANCE, URINE CLOUDY (CLEAR); BACTERIA, URINE AUTO NEGATIVE (NEGATIVE); BILIRUBIN, URINE AUTO NEGATIVE (NEGATIVE); BLOOD, URINE BLOOD NEGATIVE (NEGATIVE); CALCIUM OXALATE CRYSTALS LARGE; GLUCOSE, URINE (UA) AUTO NEGATIVE (NEGATIVE); KETONE, URINE AUTO NEGATIVE (NEGATIVE); LEUKOCYTE ESTERASE, URINE AUTO NEGATIVE (NEGATIVE); MUCUS, URINE SMALL (NEGATIVE); NITRITE, URINE AUTO NEGATIVE (NEGATIVE); PROTEIN, URINE AUTO 2+ mg/dL (NEGATIVE); RBC, URINE AUTO 42 /HPF (0-3); SPECIFIC GRAVITY URINE AUTO 1.024 (1.002-1.035); SQUAMOUS EPITHELIAL CELL UR AU 13 /HPF (0-6); UROBILINOGEN, URINE AUTO 4.0 mg/dL (0.0-2.0); WBC, URINE AUTO 5 /HPF (0-3)
[~2025-04-19] MED LIST changes: +DOCU100C16 PO; +DULO1CAP6 PO; +FLUTISP; +LOPE1CAP5 PO; +OMEP1CAP71 PO; +POTA-232 PO; -POTA10TA67 PO
== END ==
LOC: M ONCR 03-30 10:48
PROVIDERS: ATTEND General Practice
DX: Z51.0 Encounter for antineoplastic radiation therapy (principal); C78.7 Secondary malignant neoplasm of liver and intrahepatic bile duct